=== PATIENT | male | born 1940 | race Caucasian/White ===

== ENCOUNTER 2016-12-01 10:25 | Outpatient (RCR) | payer MEDICARE, OTHER ==
[2016-10-29 15:02] VITALS: BP 148/83
--- NOTE | 2016-10-29 15:37 | Procedure Note ---
Procedure Note Procedure Note Patient is receiving rabies immune globulin and rabies vaccine today. I was called to outpatient surgery center to inject the rabies immunoglobulin around the bite site. Patient was bitten on the lateral right thigh yesterday while leaving work. Around this bite site I injected a total of 7 mL intramuscularly of rabies immunoglobulin at a concentration of 150units per mL. In the left thigh the remaining 6.3 mL was injected totaling 13.3 mL or 2000 international units rabies immune globulin. DEE DAY MEDICAL COORDINATOR PESTICIDE USE Oct 29, 2016 15:37
[2016-10-29 16:05] VITALS: BP 148/83
[2016-11-01 07:50] VITALS: BP 158/74
[2016-11-05 07:54] VITALS: BP 160/87
[2016-11-12 07:46] VITALS: BP 160/83
[~2016-12-01] VITALS: Ht 177.8 cm; Wt 100.2 kg
[~2016-12-01 10:25] MED LIST: ASP81TEC PO; GLIM1TAB PO; METF-380 PO; RABIES IMMUNE GLOBULIN 150 UNIT/ML 10 ML (HYPERRAB) IM ONE; RABIES VACCINE HUMAN DIPL CELL 1 ML/2.5 UNITS SYR INJ ONE; RABIES VACCINE HUMAN DIPL CELL 1 ML/2.5 UNITS SYR ONE
[2016-12-01 10:30] VITALS: BP 147/74
== END 2017-01-27 | disposition home or self-care (01) ==
LOC: SDC 10:25
PROVIDERS: ATTEND Internal Medicine
DX: Z20.3 Contact with and (suspected) exposure to rabies (principal); S71.131A Puncture wound without foreign body, right thigh, initial encounter; W54.0XXA Bitten by dog, initial encounter; Y99.8 Other external cause status; Z23 Encounter for immunization
CPT/HCPCS: 90376; 90675; 96372

== ENCOUNTER 2018-07-28 14:44 | Emergency (ER) | payer MEDICARE, OTHER ==
[~2018-07-28] VITALS: Ht 177.8 cm; Wt 90.7 kg
[~2018-07-28 14:44] MED LIST changes: -RABIES IMMUNE GLOBULIN 150 UNIT/ML 10 ML (HYPERRAB) IM ONE; -RABIES VACCINE HUMAN DIPL CELL 1 ML/2.5 UNITS SYR INJ ONE; -RABIES VACCINE HUMAN DIPL CELL 1 ML/2.5 UNITS SYR ONE
--- OUTSIDE RECORDS SUMMARY | 2018-07-28 14:48 | XMS REPORT | Continuity of Care Document ---
Author Author [facility] Organization [facility] Address Unknown Phone Unavailable Allergies Active Description Code Type Severity Reaction Onset Reported/Identified Relationship to Patient Clinical Status Yes No Known Drug Allergies [id number] Drug Allergy Unknown N/A 07/24/2011 Medications There is no data. Problems Date Dx Coded Attending Type Code Diagnosis Diagnosed By 07/24/2011 Ot 285.9 ANEMIA NOS 07/24/2011 Ot 530.81 ESOPHAGEAL REFLUX 07/24/2011 Ot 562.10 DIVERTICULOSIS COLON (W/O MENT OF HEMORR 12/27/2013 JOHANNA CARTER DO Ot 681.00 CELLULITIS, FINGER NOS 04/03/2015 JOHANNA CARTER DO Ot 716.94 02/01/2016 JOHANNA CARTER DO Ot 486 PNEUMONIA, ORGANISM NOS 02/01/2016 Ot 681.00 CELLULITIS, FINGER NOS 02/01/2016 JOHANNA CARTER DO Ot 716.94 ARTHROPATHY NOS-HAND 02/01/2016 JOHANNA CARTER DO Ot R07.9 CHEST PAIN, UNSPECIFIED 02/04/2016 JOHANNA CARTER DO Ot R07.9 CHEST PAIN, UNSPECIFIED 03/07/2016 JOHANNA CARTER DO Ot R07.9 CHEST PAIN, UNSPECIFIED 04/09/2016 JOHANNA CARTER DO Ot R07.9 CHEST PAIN, UNSPECIFIED 10/29/2016 JOHANNA CARTER DO Ot 486 PNEUMONIA, ORGANISM NOS 10/29/2016 Ot 681.00 CELLULITIS, FINGER NOS 10/29/2016 JOHANNA CARTER DO, Ot 716.94 ARTHROPATHY NOS-HAND 10/29/2016 JOHANNA CARTER DO Ot R07.9 CHEST PAIN, UNSPECIFIED 11/01/2016 JOHANNA CARTER DO Ot S71.131A PUNCTURE WOUND W/O FOREIGN BODY, RIGHT T 11/01/2016 JOHANNA CARTER DO Ot W54.0XXA BITTEN BY DOG, INITIAL ENCOUNTER 11/01/2016 JOHANNA CARTER DO Ot Y99.8 OTHER EXTERNAL CAUSE STATUS 11/01/2016 CARTERJOHANNA MACHADO DO Ot Z20.3 CONTACT WITH AND (SUSPECTED) EXPOSURE TO 11/01/2016 JOHANNA CARTER DO Ot Z23 ENCOUNTER FOR IMMUNIZATION 11/05/2016 JOHANNA CARTER DO Ot S71.131A PUNCTURE WOUND W/O FOREIGN BODY, RIGHT T 11/05/2016 CARTER DOJOHANNA Ot W54.0XXA BITTEN BY DOG, INITIAL ENCOUNTER 11/05/2016 JOHANNA CARTER DO Ot Y99.8 OTHER EXTERNAL CAUSE STATUS 11/05/2016 JOHANNA CARTER DO Ot Z20.3 CONTACT WITH AND (SUSPECTED) EXPOSURE TO 11/05/2016 JOHANNA CARTER DO Ot Z23 ENCOUNTER FOR IMMUNIZATION 11/12/2016 JOHANNA CARTER DO Ot S71.131A PUNCTURE WOUND W/O FOREIGN BODY, RIGHT T 11/12/2016 CARTERJOHANNA MACHADO DO Ot W54.0XXA BITTEN BY DOG, INITIAL ENCOUNTER 11/12/2016 JOHANNA CARTER DO Ot Y99.8 OTHER EXTERNAL CAUSE STATUS 11/12/2016 JOHANNA CARTER DO Ot Z20.3 CONTACT WITH AND (SUSPECTED) EXPOSURE TO 11/12/2016 JOHANNA CARTER DO Ot Z23 ENCOUNTER FOR IMMUNIZATION 12/01/2016 JOHANNA CARTER DO Ot S71.131A PUNCTURE WOUND W/O FOREIGN BODY, RIGHT T 12/01/2016 CARTERJOHANNA MACHADO DO Ot W54.0XXA BITTEN BY DOG, INITIAL ENCOUNTER 12/01/2016 JOHANNA CARTER DO Ot Y99.8 OTHER EXTERNAL CAUSE STATUS 12/01/2016 CARTER DOJOHANNA Ot Z20.3 CONTACT WITH AND (SUSPECTED) EXPOSURE TO 12/01/2016 JOHANNA CARTER DO Ot Z23 ENCOUNTER FOR IMMUNIZATION 01/08/2017 JOHANNA CARTER DO Ot S71.131A PUNCTURE WOUND W/O FOREIGN BODY, RIGHT T 01/08/2017 JOHANNA CARTER DO Ot W54.0XXA BITTEN BY DOG, INITIAL ENCOUNTER 01/08/2017 JOHANNA CARTER DO Ot Y99.8 OTHER EXTERNAL CAUSE STATUS 01/08/2017 JOHANNA CARTER DO Ot Z20.3 CONTACT WITH AND (SUSPECTED) EXPOSURE TO 01/08/2017 EMMA LONG JOHANNA Benz Ot Z23 ENCOUNTER FOR IMMUNIZATION 01/27/2017 JOHANNA CARTER DO Ot S71.131A PUNCTURE WOUND W/O FOREIGN BODY, RIGHT T 01/27/2017 JOHANNA CARTER DO Ot W54.0XXA BITTEN BY DOG, INITIAL ENCOUNTER 01/27/2017 JOHANNA CARTER DO Ot Y99.8 OTHER EXTERNAL CAUSE STATUS 01/27/2017 JOHANNA CARTER DO Ot Z20.3 CONTACT WITH AND (SUSPECTED) EXPOSURE TO 01/27/2017 JOHANNA CARTER DO Ot Z23 ENCOUNTER FOR IMMUNIZATION 02/14/2017 JOHANNA CARTER DO Ot S71.131A PUNCTURE WOUND W/O FOREIGN BODY, RIGHT T 02/14/2017 JOHANNA CARTER DO Ot W54.0XXA BITTEN BY DOG, INITIAL ENCOUNTER 02/14/2017 JOHANNA CARTER DO Ot Y99.8 OTHER EXTERNAL CAUSE STATUS 02/14/2017 JOHANNA CARTER DO Ot Z20.3 CONTACT WITH AND (SUSPECTED) EXPOSURE TO 02/14/2017 EMMA LONG JOHANNA Benz Ot Z23 ENCOUNTER FOR IMMUNIZATION Procedures There is no data. Results There is no data. Encounters ACCT No. Visit Date/Time Discharge Status Pt. Type Provider Facility Loc./Unit Complaint [id number] 01/28/2017 00:12:00 01/28/2017 23:59:59 CLS Preadmit JOHANNA CARTER DO [facility] DOG BITE [id number] 12/01/2016 10:25:00 01/27/2017 00:01:00 DIS Outpatient JOHANNA CARTER DO [facility] DOG BITE [id number] 02/01/2016 06:55:00 02/01/2016 23:59:59 CLS Outpatient JOHANNA CARTER DO [facility] CARD R07.9 CHEST PAIN [id number] 03/12/2015 14:11:00 03/12/2015 23:59:59 CLS Outpatient JOHANNA CARTER DO [facility] RAD ARTHRITIS 2ND DIGIT PIP JOINT [id number] 09/30/2013 12:53:00 12/27/2013 00:01:00 DIS Outpatient JOHANNA CARTER DO [facility] SDC CELLULITIS [id number] 11/14/2013 12:22:00 11/14/2013 23:59:59 CLS Outpatient JOHANNA CARTER DO [facility] RAD PNEUMONIA [id number] 12/28/2013 00:00:00 Document Registration [id number] 07/24/2011 11:14:00 Document Registration
[2018-07-28] MEDS ORDERED: FAMOTIDINE 20MG/2ML IV (PEPCID) IVP ONE (15:15)
[2018-07-28 15:46] LABS: BASOPHILS % (AUTO) 0 % (0-10); EOSINOPHILS # (AUTO) 0.4 10^3/uL (0.0-0.3); EOSINOPHILS % (AUTO) 5 % (0-10); HEMATOCRIT 36 % (40-54); HEMOGLOBIN 11.7 G/DL (13.3-17.7); LYMPHOCYTES # (AUTO) 1.2 X 10^3 (1.0-4.0); LYMPHOCYTES % (AUTO) 18 % (12-44); MEAN CORPUSCULAR HEMOGLOBIN 27 PG (25-34); MEAN CORPUSCULAR HGB CONC 32 G/DL (32-36); MEAN CORPUSCULAR VOLUME 84 FL (80-99); MEAN PLATELET VOLUME 9.8 FL (7.4-10.4); MONOCYTES # (AUTO) 0.4 X 10^3 (0.0-1.0); MONOCYTES % (AUTO) 6 % (0-12); NEUTROPHILS % (AUTO) 71 % (42-75); PLATELET COUNT 272 10^3/uL (130-400); RED BLOOD COUNT 4.29 10^6/uL (4.35-5.85); RED CELL DISTRIBUTION WIDTH 13.7 % (10.0-14.5); WHITE BLOOD COUNT 7.1 10^3/uL (4.3-11.0)
[2018-07-28] MEDS ORDERED: methylPREDNISolone 40 MG/ML (Solu-MEDROL) VIAL IV ONE (16:00)
[2018-07-28 16:05] LABS: CALCIUM 9.4 MG/DL (8.5-10.1); CREATININE SERUM 1.65 MG/DL (0.60-1.30)
[2018-07-28] MEDS ORDERED: CITA10TA7 (16:44)
[2018-07-28] MEDS ORDERED: METF-399 (16:44)
[2018-07-28] MEDS ORDERED: GLIM2TAB (16:44)
[2018-07-28] MEDS ORDERED: LISI10TA2 (16:44)
[2018-07-28] MEDS ORDERED: ATOR20TA66 (16:44)
[2018-07-28] MEDS ORDERED: OSEL75CA15 (16:44)
--- NOTE | 2018-07-28 17:08 | ED General ---
General Chief Complaint: Allergic Reaction Stated Complaint: LIP SWELLING Nursing Triage Note: ARRIVED VIA AMB TO TRIAGE. COMPLAINS OF HIS LIP SWELLING SINCE 829. DENIES ANY OTHER COMPLAINTS. TOOK BENADRYL 50MG AT 1405 Nursing Sepsis Screen: No Definite Risk Source of Information: Patient Exam Limitations: No Limitations Allergies and Home Medications Allergies Coded Allergies: lisinopril (Verified Allergy, Intermediate, 07/28/18) Angioedema Home Medications Aspirin 81 Mg Tabec, 81 MG PO DAILY, (Reported) Glimepiride 1 Mg Tablet, 1 MG PO BID, (Reported) Metformin Hcl 1,000 Mg Tablet, 1 EACH PO BID WITH MEALS, (Reported) Past Cvkhups-Gpgdxk-Msyrjd Hx Patient Social History Alcohol Use: Rarely Uses Recreational Drug Use: No Smoking Status: Never a Smoker Recent Foreign Travel: No Contact w/Someone Who Travel: No Recent Infectious Disease Expo: No Past Medical History Surgeries: Yes (MASS REMOVED FROM BACK) Tonsillectomy Respiratory: No Cardiac: Yes Heart Murmur Neurological: No Genitourinary: No Gastrointestinal: No Musculoskeletal: Yes Endocrine: Yes Diabetes, Non-Insulin dep HEENT: No Cancer: No Psychosocial: No Integumentary: No Physical Exam Vital Signs Vital Signs - First Documented 07/28/18 14:57 Temp 98.3 Pulse 65 Resp 16 B/P (MAP) 144/60 (88) Pulse Ox 97 O2 Delivery Room Air Capillary Refill : Less Than 3 Seconds Height, Weight, BMI Height: 5'10.00" Weight: 200lbs. 0.0oz. 90.559768th; 31.7 BMI Method:Stated Progress/Results/Core Measures Suspected Sepsis Recent Fever Within 48 Hours: No Infection Criteria Present: None New/Unexplained Altered Menta: No Sepsis Screen: No Definite Risk SIRS Temperature:98.3 Pulse: 65 Respiratory Rate: 16 Laboratory Tests 07/28/18 15:35: White Blood Count 7.1 Blood Pressure 144 /60 Mean: 88 Laboratory Tests 07/28/18 15:35: Creatinine 1.65H, Platelet Count 272 Results/Orders Lab Results Laboratory Tests Test 07/28/18 15:35 Range/Units White Blood Count 7.1 4.3-11.0 10^3/uL Red Blood Count 4.29 L 4.35-5.85 10^6/uL Hemoglobin 11.7 L 13.3-17.7 G/DL Hematocrit 36 L 40-54 % Mean Corpuscular Volume 84 80-99 FL Mean Corpuscular Hemoglobin 27 25-34 PG Mean Corpuscular Hemoglobin Concent 32 32-36 G/DL Red Cell Distribution Width 13.7 10.0-14.5 % Platelet Count 272 130-400 10^3/uL Mean Platelet Volume 9.8 7.4-10.4 FL Neutrophils (%) (Auto) 71 42-75 % Lymphocytes (%) (Auto) 18 12-44 % Monocytes (%) (Auto) 6 0-12 % Eosinophils (%) (Auto) 5 0-10 % Basophils (%) (Auto) 0 0-10 % Neutrophils # (Auto) 5.0 1.8-7.8 X 10^3 Lymphocytes # (Auto) 1.2 1.0-4.0 X 10^3 Monocytes # (Auto) 0.4 0.0-1.0 X 10^3 Eosinophils # (Auto) 0.4 H 0.0-0.3 10^3/uL Basophils # (Auto) 0.0 0.0-0.1 10^3/uL Sodium Level 138 135-145 MMOL/L Potassium Level 5.0 3.6-5.0 MMOL/L Chloride Level 105 98-107 MMOL/L Carbon Dioxide Level 20 L 21-32 MMOL/L Anion Gap 13 5-14 MMOL/L Blood Urea Nitrogen 25 H 7-18 MG/DL Creatinine 1.65 H 0.60-1.30 MG/DL Estimat Glomerular Filtration Rate 41 BUN/Creatinine Ratio 15 Glucose Level 172 H 70-105 MG/DL Calcium Level 9.4 8.5-10.1 MG/DL My Orders Orders - MICHELLE GARCÍA MD Saline Lock/Iv-Start (07/28/18 15:04) Basic Metabolic Panel (07/28/18 15:04) Cbc With Automated Diff (07/28/18 15:04) Famotidine Injection (Pepcid Injection) (07/28/18 15:15) Methylprednisolone Sod Succ (Solu-Medrol (07/28/18 16:00) Medications Given in ED Current Medications Medications Dose Ordered Sig/Raymond Route Start Time Stop Time Status Last Admin Dose Admin Famotidine 20 mg ONCE ONCE IVP 07/28/18 15:15 07/28/18 15:16 DC 07/28/18 15:44 20 MG Methylprednisolone Sodium Succinate 40 mg ONCE ONCE IV 07/28/18 16:00 07/28/18 16:01 DC 07/28/18 16:10 40 MG Vital Signs/I&O 07/28/18 14:57 Temp 98.3 Pulse 65 Resp 16 B/P (MAP) 144/60 (88) Pulse Ox 97 O2 Delivery Room Air Capillary Refill : Less Than 3 Seconds Blood Pressure Mean: 88 Departure Impression 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 Decision time for Depature: 17:08 Referrals: JOHANNA RAMOS DO (PCP/Family) Primary Care Physician Patient Instructions: Angioedema Add. Discharge Instructions: Take Pepcid (or generic famotidine) 20 mg twice daily for the next couple of days. Keep Benadryl (or generic diphenhydramine) with you for the next several days and take up to 50 mg every 4 hours as needed if symptoms worsen or persist. You received some steroids in the emergency room which may cause of your blood sugars to rise. Eat a low sugar, low carbohydrate diet and watch your blood sugars closely for the next few days. Do not take lisinopril or any other medication in the angiotensin converting enzyme inhibitor (GAL-I) class of medications in the future. Please list lisinopril as an allergy for any further healthcare encounters. Return to the emergency room promptly or call 911 if you have worsening symptoms that cause swelling of the throat, tongue, or airway. Contact Dr. Ramos's office tomorrow to requests an alternative medication to lisinopril. All discharge instructions reviewed with patient and/or family. Voiced understanding. Copy Copies To 1: JOHANNA RAMOS JOSHUA T MD Jul 28, 2018 17:08
[2018-07-28 17:28] VITALS: BP 149/89
--- NOTE | 2018-07-28 17:28 | NUR ---
@ TIME OF DC, ANTERIOR LIP SWELLING SIGNIFICANTLY DIMINISHED. NO THROAT SWELLING OR DISTRESS NOTED.
== END 2018-07-28 17:28 | disposition home or self-care (01) ==
LOC: EDUNIT# 14:44 → ER 14:45
DX: T73 Effects of other deprivation (principal); T46.4X5A Adverse effect of angiotensin-converting-enzyme inhibitors, initial encounter; E11.9 Type 2 diabetes mellitus without complications; Z88.8 Allergy status to other drugs, medicaments and biological substances; Z79.82 Long term (current) use of aspirin; Z79.4 Long term (current) use of insulin; Z90.89 Acquired absence of other organs
CPT/HCPCS: 36415; 80048; 85025; 96374; 96375

== ENCOUNTER 2018-10-03 12:55 | Observation (INO) | payer MEDICARE, OTHER ==
[~2018-10-03] VITALS: Ht 177.8 cm; Wt 95.3 kg
[~2018-10-03 12:55] MED LIST changes: +ATOR20TA66 PO; +CITA10TA7 PO; +GLIM2TAB; +LISI10TA2 PO; +METF-399; +OSEL75CA15
--- OUTSIDE RECORDS SUMMARY | 2018-10-03 13:00 | XMS REPORT | Clinical Summary ---
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 Disp. Refills Start End Date Status Date metFORMIN (GLUCOPHAGE) Take 1,000 mg by mouth 2 Active 1000 MG (two) times a day with tabletIndications: type 2 meals. diabetes mellitus glimepiride (AMARYL) 2 MG Take 1 mg by mouth 2 Active tablet (two) times a day before breakfast and lunch. atorvastatin (LIPITOR) 20 Take 20 mg by mouth 09/21/19 Active MG tablet nightly. 16 lisinopril Take 10 mg by mouth every 09/21/19 Active (PRINIVIL,ZESTRIL) 10 MG evening. 16 tablet dorzolamide-timolol Instill 1 drop into the 10 mL 0 11/23/20 Active (COSOPT) 22.3-6.8 mg/mL left eye 2 (two) times a 16 ophthalmic solution day. apraclonidine (IOPIDINE) Instill 1 drop into the 5 mL 0 11/23/20 Active 0.5 % ophthalmic solution left eye 4 (four) times a 16 day. 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 11/07/2015 11/24/2015 Family History Relation Name Status Comments Father Mother Social History Tobacco Use Types Packs/Day Years Used Date Never Smoker Smokeless Tobacco: Never Used Alcohol Use Drinks/Week oz/Week Comments No Sex Assigned at Date Recorded Not on file Last Filed Vital Signs Vital Sign Reading Time Taken Blood Pressure 119/50 11/24/2015 11:23 AM CDT Pulse 58 11/24/2015 11:23 AM CDT Temperature 36.4 C (97.6 F) 11/24/2015 11:23 AM CDT Respiratory Rate 18 11/24/2015 11:23 AM CDT Oxygen Saturation 97% 11/24/2015 11:23 AM CDT Inhaled Oxygen - - Concentration Weight 95.7 kg (211 lb) 11/22/2015 2:36 PM CDT Height 177.8 cm (5' 10") 11/22/2015 2:36 PM CDT Body Mass Index 30.28 11/22/2015 2:36 PM CDT Plan of Treatment Not on file Implants Implanted Type Area Social Services Device Expiration Model / Identifier Date Serial / Lot Implant Eye Scleral Buckle Band Non-Tissue Left: Eye SLOVAK 2019 92-09 / Silicone Style 41 92-09 - Implant OPHTHALMIC / [id number] Implanted: Qty: 1 on 11/23/2015 by Keo Rowland MD Lens Bilateral: Eye Results Not on filefrom Last 3 Months
--- OUTSIDE RECORDS SUMMARY | 2018-10-03 13:00 | XMS REPORT | Continuity of Care Document ---
Author Author [facility] Organization [facility] Address Unknown Phone Unavailable Allergies Active Description Code Type Severity Reaction Onset Reported/Identified Relationship to Patient Clinical Status Yes No Known Drug Allergies [id number] Drug Allergy Unknown N/A 07/24/2011 Yes lisinopril [id number] Drug Allergy Moderate N/A 07/28/2018 Medications There is no data. Problems Date [...] 681.00 CELLULITIS, FINGER NOS 10/29/2016 JOHANNA CARTER DO Ot 716.94 ARTHROPATHY NOS-HAND 10/29/2016 JOHANNA CARTER DO Ot R07.9 CHEST PAIN, UNSPECIFIED 11/01/2016 JOHANNA CARTER DO Ot S71.131A PUNCTURE WOUND W/O FOREIGN BODY, RIGHT T 11/01/2016 CARTER DOJOHANNA Tuyet Ot W54.0XXA BITTEN BY DOG, INITIAL ENCOUNTER 11/01/2016 JOHANNA CARTER DO Ot Y99.8 OTHER EXTERNAL CAUSE STATUS 11/01/2016 CARTER DOJOHANNA Ot Z20.3 CONTACT WITH AND (SUSPECTED) EXPOSURE TO 11/01/2016 CARTER DOJOHANNA Ot Z23 ENCOUNTER FOR IMMUNIZATION 11/05/2016 CARTER DOJOHANNA Ot S71.131A PUNCTURE WOUND W/O FOREIGN BODY, RIGHT T 11/05/2016 CARTER DO, JOHANNA Tuyet Ot W54.0XXA BITTEN BY DOG, INITIAL ENCOUNTER 11/05/2016 JOHANNA CARTER DO Ot Y99.8 OTHER EXTERNAL CAUSE STATUS 11/05/2016 CARTER DOJOHANNA Ot Z20.3 CONTACT WITH AND (SUSPECTED) EXPOSURE TO 11/05/2016 CARTER DOJOHANNA Ot Z23 ENCOUNTER FOR IMMUNIZATION 11/12/2016 CARTER DOJOHANNA Ot S71.131A PUNCTURE WOUND W/O FOREIGN BODY, RIGHT T 11/12/2016 CARTER DOJOHANNA Ot W54.0XXA BITTEN BY DOG, INITIAL ENCOUNTER 11/12/2016 CARTER DOJOHANNA Ot Y99.8 OTHER EXTERNAL CAUSE STATUS 11/12/2016 CARTER DOJOHANNA Ot Z20.3 CONTACT WITH AND (SUSPECTED) EXPOSURE TO 11/12/2016 CARTER DOJOHANNA Ot Z23 ENCOUNTER FOR IMMUNIZATION 12/01/2016 CARTER DOJOHANNA Ot S71.131A PUNCTURE WOUND W/O FOREIGN BODY, RIGHT T 12/01/2016 CARTER DOJOHANNA Ot W54.0XXA BITTEN BY DOG, INITIAL ENCOUNTER 12/01/2016 CARTER DOJOHANNA Ot Y99.8 OTHER EXTERNAL CAUSE STATUS 12/01/2016 CARTER DOJOHANNA Ot Z20.3 CONTACT WITH AND (SUSPECTED) EXPOSURE TO 12/01/2016 CARTER DOJOHANNA Ot Z23 ENCOUNTER FOR IMMUNIZATION 01/08/2017 JOHANNA CARTER DO Ot S71.131A PUNCTURE WOUND W/O FOREIGN BODY, RIGHT T 01/08/2017 CARTER DOJOHANNA Ot W54.0XXA BITTEN BY DOG, INITIAL ENCOUNTER 01/08/2017 CARTER DO JOHANNA Tuyet Ot Y99.8 OTHER EXTERNAL CAUSE STATUS 01/08/2017 JOHANNA CARTER DO Tuyet Ot Z20.3 CONTACT WITH AND (SUSPECTED) EXPOSURE TO 01/08/2017 EMMA LONGJOHANNA Ot Z23 ENCOUNTER FOR IMMUNIZATION 01/27/2017 JOHANNA CARTER DO Tuyet Ot S71.131A PUNCTURE WOUND W/O FOREIGN BODY, RIGHT T 01/27/2017 JOHANNA CARTER DO Tuyet Ot W54.0XXA BITTEN BY DOG, INITIAL ENCOUNTER 01/27/2017 EMMA LONG JOHANNA Tuyet Ot Y99.8 OTHER EXTERNAL CAUSE STATUS 01/27/2017 JOHANNA CARTER DO Ot Z20.3 CONTACT WITH AND (SUSPECTED) EXPOSURE TO 01/27/2017 EMMA LONG JOHANNA Tuyet Ot Z23 ENCOUNTER FOR IMMUNIZATION 02/14/2017 EMMA LONG JOHANNA Tuyet Ot S71.131A PUNCTURE WOUND W/O FOREIGN BODY, RIGHT T 02/14/2017 EMMA LONG JOHANNA Tuyet Ot W54.0XXA BITTEN BY DOG, INITIAL ENCOUNTER 02/14/2017 EMMA LONG JOHANNA Tuyet Ot Y99.8 OTHER EXTERNAL CAUSE STATUS 02/14/2017 EMMA LONG JOHANNA Tuyet Ot Z20.3 CONTACT WITH AND (SUSPECTED) EXPOSURE TO 02/14/2017 EMMA LONGJOHANNA Ot Z23 ENCOUNTER FOR IMMUNIZATION 07/28/2018 Ot 681.00 CELLULITIS, FINGER NOS 07/28/2018 EMMA LONG JOHANNA Tuyet Ot S71.131A PUNCTURE WOUND W/O FOREIGN BODY, RIGHT T 07/28/2018 EMMA LONG JOHANNA Tuyet Ot W54.0XXA BITTEN BY DOG, INITIAL ENCOUNTER 07/28/2018 EMMA LONGJOHANNA Ot Y99.8 OTHER EXTERNAL CAUSE STATUS 07/28/2018 EMMA LONGJOHANNA Ot Z20.3 CONTACT WITH AND (SUSPECTED) EXPOSURE TO 07/28/2018 CARTER DOJOHANNA Ot Z23 ENCOUNTER FOR IMMUNIZATION 07/28/2018 MICHELLE GARCÍA MD, Ot E11.9 TYPE 2 DIABETES MELLITUS WITHOUT COMPLIC 07/28/2018 MICHELLE GARCÍA MD Ot K13.0 DISEASES OF LIPS 07/28/2018 MICHELLE GARCÍA MD, Ot T46.4X5A ADVERSE EFFECT OF [id number] 07/28/2018 MICHELLE GARCÍA MD, Ot T73.8XXA OTHER EFFECTS OF DEPRIVATION, INITIAL EN 07/28/2018 MICHELLE GARCÍA MD, Ot Z79.4 [employer] (CURRENT) USE OF INSULIN 07/28/2018 MICHELLE GARCÍA MD, Ot Z79.82 [employer] CR[employer] (CURRENT) USE OF ASPIRIN 07/28/2018 MICHELLE GARCÍA MD, Ot Z88.8 ALLERGY STATUS TO [facility] DRUG/MEDS/BIOL SUB 07/28/2018 MICHELLE GARCÍA MD, Ot Z90.89 ACQUIRED ABSENCE OF OTHER ORGANS 07/28/2018 JOHANNA CARTER DO, Ot 486 PNEUMONIA, ORGANISM NOS 07/28/2018 Ot 681.00 CELLULITIS, FINGER NOS 07/28/2018 JOHANNA CARTER DO Ot 716.94 ARTHROPATHY NOS-HAND 07/28/2018 JOHANNA CARTER DO, Ot R07.9 CHEST PAIN, UNSPECIFIED 07/28/2018 JOHANNA CARTER DO, Ot S71.131A PUNCTURE WOUND W/O FOREIGN BODY, RIGHT T 07/28/2018 JOHANNA CARTER DO, Ot W54.0XXA BITTEN BY DOG, INITIAL ENCOUNTER 07/28/2018 JOHANNA CARTER DO, Ot Y99.8 OTHER EXTERNAL CAUSE STATUS 07/28/2018 JOHANNA CARTER DO, Ot Z20.3 CONTACT WITH AND (SUSPECTED) EXPOSURE TO 07/28/2018 JOHANNA CARTER DO, Ot Z23 ENCOUNTER FOR IMMUNIZATION 07/30/2018 MICHELLE GARCÍA MD, Ot E11.9 TYPE 2 DIABETES MELLITUS WITHOUT COMPLIC 07/30/2018 MICHELLE GARCÍA MD, Ot K13.0 DISEASES OF LIPS 07/30/2018 MICHELLE GARCÍA MD, Ot T46.4X5A ADVERSE EFFECT OF [id number] 07/30/2018 MICHELLE GARCÍA MD, Ot T73.8XXA OTHER EFFECTS OF DEPRIVATION, INITIAL EN 07/30/2018 MICHELLE GARCÍA MD, Ot Z79.4 [facility] (CURRENT) USE OF INSULIN 07/30/2018 MICHELLE GARCÍA MD, Ot Z79.82 [facility] (CURRENT) USE OF ASPIRIN 07/30/2018 RAQUEL HERRERA, MICHELLE Fox Ot Z88.8 ALLERGY STATUS TO [facility] DRUG/MEDS/BIOL SUB 07/30/2018 RAQUEL HERRERA, MICHELLE Fox Ot Z90.89 ACQUIRED ABSENCE OF OTHER ORGANS Procedures There is no data. Results Test Result Range Complete blood count (CBC) with automated white blood cell (WBC) differential - 07/28/18 15:35 Blood leukocytes automated count (number/volume) 7.1 10*3/uL 4.3-11.0 Blood erythrocytes automated count (number/volume) 4.29 10*6/uL 4.35-5.85 Venous blood hemoglobin measurement (mass/volume) 11.7 g/dL 13.3-17.7 Blood hematocrit (volume fraction) 36 % 40-54 Automated erythrocyte mean corpuscular volume 84 [foz_us] 80-99 Automated erythrocyte mean corpuscular hemoglobin (mass per erythrocyte) 27 pg 25-34 Automated erythrocyte mean corpuscular hemoglobin concentration measurement ( mass/volume) 32 g/dL 32-36 Automated erythrocyte distribution width ratio 13.7 % 10.0-14.5 Automated blood platelet count (count/volume) 272 10*3/uL 130-400 Automated blood platelet mean volume measurement 9.8 [foz_us] 7.4-10.4 Automated blood neutrophils/100 leukocytes 71 % 42-75 Automated blood lymphocytes/100 leukocytes 18 % 12-44 Blood monocytes/100 leukocytes 6 % 0-12 Automated blood eosinophils/100 leukocytes 5 % 0-10 Automated blood basophils/100 leukocytes 0 % 0-10 Blood neutrophils automated count (number/volume) 5.0 10*3 1.8-7.8 Blood lymphocytes automated count (number/volume) 1.2 10*3 1.0-4.0 Blood monocytes automated count (number/volume) 0.4 10*3 0.0-1.0 Automated eosinophil count 0.4 10*3/uL 0.0-0.3 Automated blood basophil count (count/volume) 0.0 10*3/uL 0.0-0.1 Whole blood basic metabolic panel - 07/28/18 15:35 Serum or plasma sodium measurement (moles/volume) 138 mmol/L 135-145 Serum or plasma potassium measurement (moles/volume) 5.0 mmol/L 3.6-5.0 Serum or plasma chloride measurement (moles/volume) 105 mmol/L 98-107 Carbon dioxide 20 mmol/L 21-32 Serum or plasma anion gap determination (moles/volume) 13 mmol/L 5-14 Serum or plasma urea nitrogen measurement (mass/volume) 25 mg/dL 7-18 Serum or plasma creatinine measurement (mass/volume) 1.65 mg/dL 0.60-1.30 Serum or plasma urea nitrogen/creatinine mass ratio 15 NRG Serum or plasma creatinine measurement with calculation of estimated glomerular filtration rate 41 NRG Serum or plasma glucose measurement (mass/volume) 172 mg/dL 70-105 Serum or plasma calcium measurement (mass/volume) 9.4 mg/dL 8.5-10.1 Encounters ACCT No. Visit Date/Time Discharge Status Pt. Type Provider Facility Loc./Unit Complaint [id number] 07/28/2018 14:45:00 07/28/2018 17:28:00 DIS Emergency MICHELLE GARCÍA MD [facility] ER LIP SWELLING [id number] 01/28/2017 00:12:00 01/28/2017 23:59:59 CLS Preadmit JOHANNA CARTER DO [facility] DOG BITE [id number] 12/01/2016 10:25:00 01/27/2017 00:01:00 DIS Outpatient JOHANNA CARTER DO [facility] DOG BITE [id number] 02/01/2016 06:55:00 02/01/2016 23:59:59 CLS Outpatient JOHANNA CARTER DO [facility] CARD R07.9 CHEST PAIN [id number] 03/12/2015 14:11:00 03/12/2015 23:59:59 CLS Outpatient JOHANNA CARTER DO [facility] RAD ARTHRITIS 2ND DIGIT PIP JOINT [id number] 09/30/2013 12:53:00 12/27/2013 00:01:00 DIS Outpatient JOHANNA CARTER DO [facility] CELLULITIS [id number] 11/14/2013 12:22:00 11/14/2013 23:59:59 CLS Outpatient JOHANNA CARTER DO [facility] RAD PNEUMONIA [id number] 12/28/2013 00:00:00 Document Registration [id number] 07/24/2011 11:14:00 Document Registration
[2018-10-03] MEDS ORDERED: NS IV 1000 ML 1,000 ML IV ONE (13:41)
[2018-10-03 13:51] LABS: BASOPHILS % (AUTO) 0 % (0-10); EOSINOPHILS % (AUTO) 0 % (0-10); HEMATOCRIT 41 % (40-54); HEMOGLOBIN 13.2 G/DL (13.3-17.7); LYMPHOCYTES # (AUTO) 0.9 X 10^3 (1.0-4.0); LYMPHOCYTES % (AUTO) 11 % (12-44); MEAN CORPUSCULAR HEMOGLOBIN 28 PG (25-34); MEAN CORPUSCULAR HGB CONC 32 G/DL (32-36); MEAN CORPUSCULAR VOLUME 85 FL (80-99); MEAN PLATELET VOLUME 10.6 FL (7.4-10.4); MONOCYTES # (AUTO) 0.9 X 10^3 (0.0-1.0); MONOCYTES % (AUTO) 10 % (0-12); NEUTROPHILS # (AUTO) 6.5 X 10^3 (1.8-7.8); NEUTROPHILS % (AUTO) 78 % (42-75); PLATELET COUNT 188 10^3/uL (130-400); RED CELL DISTRIBUTION WIDTH 14.3 % (10.0-14.5); WHITE BLOOD COUNT 8.3 10^3/uL (4.3-11.0)
[2018-10-03 14:03] LABS: ALBUMIN 4.4 GM/DL (3.2-4.5); BILIRUBIN,TOTAL 1.4 MG/DL (0.1-1.0); CALCIUM 9.2 MG/DL (8.5-10.1); CREATININE SERUM 1.83 MG/DL (0.60-1.30); POTASSIUM 4.4 MMOL/L (3.6-5.0); TOTAL PROTEIN 8.1 GM/DL (6.4-8.2)
--- NOTE | 2018-10-03 14:44 | Diagnostic Imaging Report ---
PROCEDURE: CT head and CT cervical spine without contrast. TECHNIQUE: Multiple contiguous axial images were obtained through the brain and cervical spine without the use of intravenous contrast. Sagittal and coronal reformations through the cervical spine were then performed. INDICATION: Fell, head and neck pain. COMPARISON: There are no prior studies available for comparison. CT OF THE HEAD: There is no mass, shift of the midline, or hemorrhage to suggest an acute intracranial abnormality. The normal tentorial blush is noted. The ventricles are not abnormally dilated. There are vague areas of low density in the periventricular white matter bilaterally. These findings are nonspecific but may be secondary to encephalomalacia from microvascular ischemia. Cortical atrophy is also seen. The degree of atrophy is consistent with the patient's age. The bone windows show no sign of a fracture or of a destructive lesion. The orbits are symmetrical and within normal limits. There is mucosal thickening and fluid in the right maxillary antrum consistent with sinusitis. The sinuses, where visualized, are otherwise generally clear. IMPRESSION: 1. There is no evidence for an acute intracranial abnormality. 2. If the patient is anticoagulated, and if his symptoms persist, then a short-term (24-hour) follow-up CT head exam would be recommended. 3. There is right maxillary sinusitis. CT CERVICAL SPINE: The reconstructed parasagittal images do show slight anterior translation of C5 with respect to C6. There is also narrowing of the disc space at this level. There does not appear to be any high-grade central stenosis at C5-6, however. The remainder of the cervical spine is unremarkable for a high-grade central stenosis. There is no fracture or acute bony abnormality appreciated. There is some bony irregularity along the posterior aspect of the facet joint on the left at C5-6 (image 52/80). I suspect this is more likely due to chronic bony disease than to an acute injury. Clinical followup is recommended, however. There is no sign of retropharyngeal edema. The thyroid gland is unremarkable. The lung apices are clear. IMPRESSION: 1. There is no evidence for an acute bony abnormality. The irregular appearance of the posterior aspect of the facet joint on the left at C5-6 is more likely due to degenerative disease than to an acute abnormality. Even so, clinical followup is recommended. 2. There is degenerative disc and bony disease at C5-6, but there is no evidence for a high-grade central stenosis at this level. 3. These results were discussed with Dr. Tse. Dictated by: Dictated on workstation # [id number]
--- NOTE | 2018-10-03 14:46 | Diagnostic Imaging Report ---
PROCEDURE: CT chest, abdomen, and pelvis without contrast. TECHNIQUE: Multiple contiguous axial images were obtained through the chest, abdomen, and pelvis without the use of intravenous contrast. INDICATION: Cough. Chest pain. Fall. COMPARISON: None. FINDINGS: Chest: Minimal linear atelectasis or scarring in the lung bases. Calcified right hilar lymph nodes. No dense consolidation in the lungs. No endobronchial lesions. No pleural effusion or pneumothorax. Normal caliber thoracic aorta and main pulmonary arteries. Normal heart size. No pericardial effusion. No mediastinal, hilar or axillary lymphadenopathy. Bridging osteophytes throughout much of the thoracic spine. There is acute appearing fracture through the anterior vertebral body of T7 extending through the inferior endplate. No other fractures are identified. No substantial height loss in the thoracolumbar spine. Abdomen and pelvis: The liver, gallbladder, pancreas, spleen, adrenals, kidneys, collecting systems and bladder are negative on this noncontrast exam. Penile implants are partially visualized. No lymphadenopathy. Mild atherosclerotic calcifications including a normal caliber abdominal aorta. No free intraperitoneal air or fluid. No lymphadenopathy. Advanced colonic diverticulosis without evidence of active diverticulitis. No acute osseous findings. Moderate spondylotic changes in the lumbar spine. IMPRESSION: 1. Nondisplaced linear fracture through the anterior vertebral body of T7 exiting the inferior endplate. No height mass. No other fractures. 2. No acute CT findings in the lungs, abdomen or pelvis. 3. Advanced colonic diverticulosis without evidence of active diverticulitis. Dictated by: Dictated on workstation # [id number]
[2018-10-03 16:03] LABS: BILIRUBIN,URINE NEGATIVE (NEGATIVE); CLARITY,URINE SLIGHTLY CLOUDY; COLOR,URINE YELLOW; GLUCOSE, URINE (UA) NEGATIVE (NEGATIVE); KETONES,URINE 1+ (NEGATIVE); LEUKOCYTE ESTERASE ,URINE NEGATIVE (NEGATIVE); NITRITE,URINE NEGATIVE (NEGATIVE); PH,URINE 5 (5-9); PROTEIN,URINE 3+ (NEGATIVE); UROBILINOGEN,URINE NORMAL (NORMAL)
[2018-10-03 16:13] LABS: BACTERIA,URINE NEGATIVE /HPF; RBC,URINE TNTC /HPF
[2018-10-03] MEDS ORDERED: fentaNYL INJECTION 100 MCG/2 ML AMP IVP ONE ×2 (17:30→19:15)
[2018-10-03] MEDS ORDERED: OSELTAMIVIR 30 MG (TAMIFLU) CAPSULE PO ONE (17:30)
[2018-10-03] MEDS ORDERED: HYDROcodone/APAP 5 MG/325 MG (LORTAB) TAB ONE (19:05)
[2018-10-03] MEDS ORDERED: NS IV 1000 ML 1,000 ML ONE (19:11)
[2018-10-03] MEDS ORDERED: HYDROcodone/APAP 5 MG/325 MG (LORTAB) TAB PO ONE (19:15)
--- NOTE | 2018-10-03 19:23 | ED General ---
General Chief Complaint: Trauma-Non Activation Stated Complaint: FALL/COUGH/DIZZINESS Nursing Triage Note: see triage note Nursing Sepsis Screen: No Definite Risk Source of Information: Patient Exam Limitations: No Limitations History of Present Illness Date Seen by Provider: Oct 03, 2018 Time Seen by Provider: 13:30 Initial Comments This 77-year-old gentleman ambulates to the emergency room accompanied by his after having a fall in his home. The fall occurred at about 11:30. He fell backward in the bathroom striking his head and back. There was no loss of consciousness but the patient did not remember the fall. In fact, the patient did not remember being ill for the past 2 days. He has been ill with a fever and cough. He complains of some minor pain at the back of his head and some upper back pain. He also has pain in the right lower lateral chest wall that is tender to palpation and hurts with movement or cough. He is alert and oriented at this time. Location Injury Occurred: pt's home Allergies and Home Medications Allergies Coded Allergies: lisinopril (Verified Allergy, Intermediate, 07/28/18) Angioedema Home Medications Aspirin 81 Mg Tabec, 81 MG PO DAILY, (Reported) Atorvastatin Calcium 20 Mg Tablet, 20 MG PO HS, (Reported) Citalopram Hydrobromide 10 Mg Tablet, 10 MG PO DAILY, (Reported) Lisinopril 10 Mg Tablet, 10 MG PO HS, (Reported) Metformin Hcl 1,000 Mg Tablet, 1 EACH PO BID WITH MEALS, (Reported) Patient Home Medication List Home Medication List Reviewed: Yes Review of Systems Review of Systems Constitutional: see HPI EENTM: see HPI Respiratory: see HPI Cardiovascular: no symptoms reported Gastrointestinal: no symptoms reported Genitourinary: no symptoms reported Musculoskeletal: see HPI Skin: no symptoms reported Psychiatric/Neurological: See HPI Hematologic/Lymphatic: No Symptoms Reported Immunological/Allergic: no symptoms reported Past Zdobagq-Fucerl-Ykrnez Hx Past Med/Social Hx: Reviewed Nursing Past Med/Soc Hx Patient Social History Alcohol Use: Rarely Uses Recreational Drug Use: No Smoking Status: Never a Smoker Recent Foreign Travel: No Contact w/Someone Who Travel: No Recent Infectious Disease Expo: No Recent Hopitalizations: No Past Medical History Surgeries: Yes (MASS REMOVED FROM BACK, hiatal hernia repair) Tonsillectomy Respiratory: No Cardiac: Yes Heart Murmur, Hypertension Neurological: No Genitourinary: No Gastrointestinal: No Musculoskeletal: Yes Endocrine: Yes Diabetes, Non-Insulin dep HEENT: No Cancer: No Psychosocial: Yes Anxiety Integumentary: No Physical Exam Vital Signs Vital Signs - First Documented 10/03/18 12:55 Temp 98.2 Pulse 76 Resp 14 B/P (MAP) 151/78 (102) Pulse Ox 93 O2 Delivery Room Air Capillary Refill : Less Than 3 Seconds Height, Weight, BMI Height: 5'10.00" Weight: 200lbs. 0.0oz. 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 Norm as Tested Skin: Normal Color, Warm/Dry Progress/Results/Core Measures Suspected Sepsis Recent Fever Within 48 Hours: No Infection Criteria Present: Suspected New Infection New/Unexplained Altered Menta: No Sepsis Screen: No Definite Risk SIRS Temperature:98.2 Pulse: 76 Respiratory Rate: 14 Laboratory Tests 10/03/18 13:07: White Blood Count 8.3 Blood Pressure 151 /78 Mean: 102 Laboratory Tests 10/03/18 13:07: Creatinine 1.83H, Platelet Count 188, Total Bilirubin 1.4H Results/Orders Lab Results Laboratory Tests Test 10/03/18 13:04 10/03/18 13:07 10/03/18 15:55 Range/Units Glucometer 165 H 70-110 MG/DL White Blood Count 8.3 4.3-11.0 10^3/uL Red Blood Count 4.80 4.35-5.85 10^6/uL Hemoglobin 13.2 L 13.3-17.7 G/DL Hematocrit 41 40-54 % Mean Corpuscular Volume 85 80-99 FL Mean Corpuscular Hemoglobin 28 25-34 PG Mean Corpuscular Hemoglobin Concent 32 32-36 G/DL Red Cell Distribution Width 14.3 10.0-14.5 % Platelet Count 188 130-400 10^3/uL Mean Platelet Volume 10.6 H 7.4-10.4 FL Neutrophils (%) (Auto) 78 H 42-75 % Lymphocytes (%) (Auto) 11 L 12-44 % Monocytes (%) (Auto) 10 0-12 % Eosinophils (%) (Auto) 0 0-10 % Basophils (%) (Auto) 0 0-10 % Neutrophils # (Auto) 6.5 1.8-7.8 X 10^3 Lymphocytes # (Auto) 0.9 L 1.0-4.0 X 10^3 Monocytes # (Auto) 0.9 0.0-1.0 X 10^3 Eosinophils # (Auto) 0.0 0.0-0.3 10^3/uL Basophils # (Auto) 0.0 0.0-0.1 10^3/uL Sodium Level 133 L 135-145 MMOL/L Potassium Level 4.4 3.6-5.0 MMOL/L Chloride Level 98 98-107 MMOL/L Carbon Dioxide Level 21 21-32 MMOL/L Anion Gap 14 5-14 MMOL/L Blood Urea Nitrogen 24 H 7-18 MG/DL Creatinine 1.83 H 0.60-1.30 MG/DL Estimat Glomerular Filtration Rate 36 BUN/Creatinine Ratio 13 Glucose Level 166 H 70-105 MG/DL Calcium Level 9.2 8.5-10.1 MG/DL Corrected Calcium 8.9 8.5-10.1 MG/DL Total Bilirubin 1.4 H 0.1-1.0 MG/DL Aspartate Amino Transf (AST/SGOT) 20 5-34 U/L Alanine Aminotransferase (ALT/SGPT) 15 0-55 U/L Alkaline Phosphatase 105 40-136 U/L Total Protein 8.1 6.4-8.2 GM/DL Albumin 4.4 3.2-4.5 GM/DL Urine Color YELLOW Urine Clarity SLIGHTLY CLOUDY Urine pH 5 5-9 Urine Specific [place] 1.020 1.016-1.022 Urine Protein 3+ H NEGATIVE Urine Glucose (UA) NEGATIVE NEGATIVE Urine Ketones 1+ H NEGATIVE Urine Nitrite NEGATIVE NEGATIVE Urine Bilirubin NEGATIVE NEGATIVE Urine Urobilinogen NORMAL NORMAL MG/DL Urine Leukocyte Esterase NEGATIVE NEGATIVE Urine RBC (Auto) 5+ H NEGATIVE Urine RBC TNTC H /HPF Urine WBC NONE /HPF Urine Squamous Epithelial Cells NONE /HPF Urine Crystals NONE /LPF Urine Bacteria NEGATIVE /HPF Urine Casts NONE /LPF Urine Mucus NEGATIVE /LPF Urine Culture Indicated NO Micro Results Microbiology 10/03/18 Influenza Types A,B Antigen (ROSY) - Final, Complete My Orders Orders - MICHELLE TSE MD Influenza A And B Antigens (10/03/18 13:30) Ct Head/Cervical Spine Wo (10/03/18 13:41) Cbc With Automated Diff (10/03/18 13:41) Comprehensive Metabolic Panel (10/03/18 13:41) Saline Lock/Iv-Start (10/03/18 13:41) Ns Iv 1000 Ml (Sodium Chloride 0.9%) (10/03/18 13:41) Ct Chest/Abdomen/Pelvis Wo (10/03/18 13:41) Ua Culture If Indicated (10/03/18 13:41) Fentanyl Injection (Sublimaze Injection (10/03/18 17:30) Oseltamivir 30 Mg Capsule (Tamiflu 30 Mg (10/03/18 17:30) Cho 60g/M 3snack (16-2000 Reji) (10/04/18 Breakfast) Fentanyl Injection (Sublimaze Injection (10/03/18 19:15) Hydrocodone/Apap 5/325 Tablet (Lortab 5 (10/03/18 19:15) Hydrocodone/Apap 5/325 Tablet (Lortab 5 (10/03/18 19:05) Ns Iv 1000 Ml (Sodium Chloride 0.9%) (10/03/18 19:11) Ns Iv 1000 Ml (Sodium Chloride 0.9%) (10/03/18 19:30) Acetaminophen Tablet (Tylenol Tablet) (10/03/18 19:45) Medications Given in ED Current Medications Medications Dose Ordered Sig/Raymond Route Start Time Stop Time Status Last Admin Dose Admin Acetaminophen/ Hydrocodone Bitart 1 tab ONCE ONCE PO 10/03/18 19:15 10/03/18 19:16 DC 10/03/18 19:05 1 TAB Fentanyl Citrate 50 mcg ONCE ONCE IVP 10/03/18 17:30 10/03/18 17:31 DC 10/03/18 17:34 50 MCG Fentanyl Citrate 75 mcg ONCE ONCE IVP 10/03/18 19:15 10/03/18 19:16 DC 10/03/18 19:05 75 MCG Oseltamivir Phosphate 30 mg ONCE ONCE PO 10/03/18 17:30 10/03/18 17:31 DC 10/03/18 17:32 30 MG Sodium Chloride 1,000 ml @ 0 mls/hr Q0M ONCE IV 10/03/18 13:41 10/03/18 13:46 DC 10/03/18 13:50 0 MLS/HR Vital Signs/I&O 10/03/18 10/03/18 10/03/18 12:55 19:05 19:41 Temp 98.2 100.6 100.6 Pulse 76 Resp 14 B/P (MAP) 151/78 (102) Pulse Ox 93 O2 Delivery Room Air Capillary Refill : Less Than 3 Seconds Blood Pressure Mean: 102 Progress Note : Progress Note CT of the head through pelvis was obtained. Patient was found to have a transverse fracture through the T7 body. Dr. Muñoz was consulted about this fracture. He graciously provided input and recommended assessment by a neurosurgeon or spine surgeon as he is not presently available to see the patient and is not [facility]. I did contact Dr. Duffy, neurosurgeon [facility] at [facility] in [place]. She recommended a TLSO brace and follow-up as an outpatient. She did not feel transfer was necessary. [facility] does not have an "off the shelf" TLSO product. Options were to admit the patient for observation and symptom management while awaiting fitting by an orthotics Company versus transfer to another facility that might have been "off the shelf " product. Patient elects to be admitted here. Case was discussed with Dr. Singleton who agrees to admission. Case was also discussed with Dr. Baer S trauma surgeon. He excepts consult. Also discussed was the hematuria found in the blood. This may represent a renal contusion. Patient had lateral chest wall tenderness on the right but no injury was found on CT scan. He likely has a chest wall contusion. Pain was treated with fentanyl and hydrocodone. IV fluids were initiated. Tamiflu was started in the ER for treatment of influenza. Diagnostic Imaging Diagonstic Imaging: CT Plain Films/CT/US/NM/MRI: c-spine, head Comments CT head and cervical spine viewed by me and report reviewed. See report below: NAME: MILY SMITH [facility] REC#: [id number] PT STATUS: REG ER : 1940 PHYSICIAN: MICHELLE TSE MD ADMIT DATE: 10/03/18/ER Draft Date of Exam:10/03/18 CT HEAD/CERVICAL SPINE WO PROCEDURE: CT head and CT cervical spine without contrast. TECHNIQUE: Multiple contiguous axial images were obtained through the brain and cervical spine without the use of intravenous contrast. Sagittal and coronal reformations through the cervical spine were then performed. INDICATION: Fell, head and neck pain. COMPARISON: There are no prior studies available for comparison. CT OF THE HEAD: There is no mass, shift of the midline, or hemorrhage to suggest an acute intracranial abnormality. The normal tentorial blush is noted. The ventricles are not abnormally dilated. There are vague areas of low density in the periventricular white matter bilaterally. These findings are nonspecific but may be secondary to encephalomalacia from microvascular ischemia. Cortical atrophy is also seen. The degree of atrophy is consistent with the patient's age. The bone windows show no sign of a fracture or of a destructive lesion. The orbits are symmetrical and within normal limits. There is mucosal thickening and fluid in the right maxillary antrum consistent with sinusitis. The sinuses, where visualized, are otherwise generally clear. IMPRESSION: 1. There is no evidence for an acute intracranial abnormality. 2. If the patient is anticoagulated, and if his symptoms persist, then a short-term (24-hour) follow-up CT head exam would be recommended. 3. There is right maxillary sinusitis. CT CERVICAL SPINE: The reconstructed parasagittal images do show slight anterior translation of C5 with respect to C6. There is also narrowing of the disc space at this level. There does not appear to be any high-grade central stenosis at C5-6, however. The remainder of the cervical spine is unremarkable for a high-grade central stenosis. There is no fracture or acute bony abnormality appreciated. There is some bony irregularity along the posterior aspect of the facet joint on the left at C5-6 (image 52/80). I suspect this is more likely due to chronic bony disease than to an acute injury. Clinical followup is recommended, however. There is no sign of retropharyngeal edema. The thyroid gland is unremarkable. The lung apices are clear. IMPRESSION: 1. There is no evidence for an acute bony abnormality. The irregular appearance of the posterior aspect of the facet joint on the left at C5-6 is more likely due to degenerative disease than to an acute abnormality. Even so, clinical followup is recommended. 2. There is degenerative disc and bony disease at C5-6, but there is no evidence for a high-grade central stenosis at this level. 3. These results were discussed with Dr. Tse. Dictated on workstation # [id number] Dict: 10/03/18 1432 Trans: 10/03/18 1453 [id number] Interpreted by: ROD THOMASON MD Diagonstic Imaging: CT Plain Films/CT/US/NM/MRI: chest, abdomen, pelvis Comments CT chest, abdomen and pelvis viewed by me and report reviewed. See report below : NAME: MILY SMITH [facility] REC#: [id number] PT STATUS: REG ER : 1940 PHYSICIAN: MICHELLE TSE MD ADMIT DATE: 10/03/18/ER Signed Date of Exam: 10/03/18 CT CHEST/ABDOMEN/PELVIS WO PROCEDURE: CT chest, abdomen, and pelvis without contrast. TECHNIQUE: Multiple contiguous axial images were obtained through the chest, abdomen, and pelvis without the use of intravenous contrast. INDICATION: Cough. Chest pain. Fall. COMPARISON: None. FINDINGS: Chest: Minimal linear atelectasis or scarring in the lung bases. Calcified right hilar lymph nodes. No dense consolidation in the lungs. No endobronchial lesions. No pleural effusion or pneumothorax. Normal caliber thoracic aorta and main pulmonary arteries. Normal heart size. No pericardial effusion. No mediastinal, hilar or axillary lymphadenopathy. Bridging osteophytes throughout much of the thoracic spine. There is acute appearing fracture through the anterior vertebral body of T7 extending through the inferior endplate. No other fractures are identified. No substantial height loss in the thoracolumbar spine. Abdomen and pelvis: The liver, gallbladder, pancreas, spleen, adrenals, kidneys, collecting systems and bladder are negative on this noncontrast exam. Penile implants are partially visualized. No lymphadenopathy. Mild atherosclerotic calcifications including a normal caliber abdominal aorta. No free intraperitoneal air or fluid. No lymphadenopathy. Advanced colonic diverticulosis without evidence of active diverticulitis. No acute osseous findings. Moderate spondylotic changes in the lumbar spine. IMPRESSION: 1. Nondisplaced linear fracture through the anterior vertebral body of T7 exiting the inferior endplate. No height mass. No other fractures. 2. No acute CT findings in the lungs, abdomen or pelvis. 3. Advanced colonic diverticulosis without evidence of active diverticulitis. Dictated by: Dictated on workstation # [id number] Dict: 10/03/18 1434 Trans: 10/03/18 1701 Interpreted by: MICHELLE HARPER MD Electronically signed by: MICHELLE HARPER MD 10/03/18 1701 Departure Communication (Admissions) Time/Spoke to Admitting Phy: 18:09 Dr. Singleton Time/Spoke to Consulting Phy: 18:15 Dr. Baer Impression Primary Impression: T7 vertebral fracture Qualified Codes: S22.069A - Unspecified fracture of T7-t8 vertebra, initial encounter for closed fracture Additional Impressions: Influenza A Chronic kidney disease Qualified Codes: N18.9 - Chronic kidney disease, unspecified Hematuria Qualified Codes: R31.9 - Hematuria, unspecified Chest wall contusion Qualified Codes: S20.211A - Contusion of right front wall of thorax, initial encounter Fall on same level Qualified Codes: W18.30XA - Fall on same level, unspecified, initial encounter Disposition: ADMITTED INPATIENT Condition: Improved Admissions Decision to Admit Reason: Admit from ER (Trauma) Decision to Admit/Date: Oct 03, 2018 Time/Decision to Admit Time: 18:09 Departure-Patient Inst. Referrals: JOHANNA CARTER DO (PCP/Family) Primary Care Physician Work/School Note: Work Release Form Date Seen in the Emergency Department: Oct 03, 2018 Restrictions: Need Release from Doctor Other Restrictions Listed Below: No work until release. T7 spine fracture and influenza. Copy Copies To 1: JOHANNA CARTER JOSHUA T MD Oct 03, 2018 19:23
[2018-10-03] MEDS ORDERED: NS IV 1000 ML 1,000 ML IV SCH (19:30)
[2018-10-03] MEDS ORDERED: ACETAMINOPHEN 500 MG TAB (TYLENOL) PO ONE (19:45)
--- OUTSIDE RECORDS SUMMARY | 2018-10-03 19:48 | XMS REPORT | Continuity of Care Document ---
Author Author [facility] Organization [facility] Address Unknown Phone Unavailable Allergies Active Description Code Type Severity Reaction Onset Reported/Identified Relationship to Patient Clinical Status Yes No Known Drug Allergies [id number] Drug Allergy Unknown N/A 07/24/2011 Yes lisinopril [id number] Drug Allergy Moderate N/A 07/28/2018 Medications There [...] Ot Y99.8 OTHER EXTERNAL CAUSE STATUS 11/01/2016 CRATER DOJOHANNA Ot Z20.3 CONTACT WITH AND (SUSPECTED) [...] GARCÍA MD, Ot T46.4X5A ADVERSE EFFECT OF [id number] 07/28/2018 MICHELLE GARCÍA MD, Ot T73.8XXA OTHER EFFECTS OF DEPRIVATION, INITIAL EN 07/28/2018 MICHELLE GARCÍA MD, Ot Z79.4 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 07/28/2018 MICHELLE GARCÍA MD, Ot Z79.82 CORPORATE AUDITOR (CURRENT) USE OF ASPIRIN 07/28/2018 MICHELLE GARCÍA MD, Ot Z88.8 ALLERGY STATUS TO [facility] DRUG/MEDS/BIOL SUB 07/28/2018 MICHELLE GARCÍA MD, Ot [...] GARCÍA MD, Ot T46.4X5A ADVERSE EFFECT OF [id number] 07/30/2018 MICHELLE GARCÍA MD, Ot T73.8XXA OTHER EFFECTS OF DEPRIVATION, INITIAL EN 07/30/2018 MICHELLE GARCÍA MD, Ot Z79.4 LONG-TERM (CURRENT) USE OF INSULIN 07/30/2018 MICHELLE GARCÍA MD, Ot Z79.82 LONG-TERM (CURRENT) USE OF ASPIRIN 07/30/2018 RAQUEL HERRERA, MICHELLE Fox Ot Z88.8 ALLERGY STATUS TO [facility] DRUG/MEDS/BIOL SUB 07/30/2018 RAQUEL HERRERA, MICHELLE Fox [...] plasma calcium measurement (mass/volume) 9.4 mg/dL 8.5-10.1 Capillary blood glucose measurement by glucometer (mass/volume) - 10/03/18 13: 04 Capillary blood glucose measurement by glucometer (mass/volume) 165 mg/dL 70-110 Complete blood count (CBC) with automated white blood cell (WBC) differential - 10/03/18 13:07 Blood leukocytes automated count (number/volume) 8.3 10*3/uL 4.3-11.0 Blood erythrocytes automated count (number/volume) 4.80 10*6/uL 4.35-5.85 Venous blood hemoglobin measurement (mass/volume) 13.2 g/dL 13.3-17.7 Blood hematocrit (volume fraction) 41 % 40-54 Automated erythrocyte mean corpuscular volume 85 [foz_us] 80-99 Automated erythrocyte mean corpuscular hemoglobin (mass per erythrocyte) 28 pg 25-34 Automated erythrocyte mean corpuscular hemoglobin concentration measurement ( mass/volume) 32 g/dL 32-36 Automated erythrocyte distribution width ratio 14.3 % 10.0-14.5 Automated blood platelet count (count/volume) 188 10*3/uL 130-400 Automated blood platelet mean volume measurement 10.6 [foz_us] 7.4-10.4 Automated blood neutrophils/100 leukocytes 78 % 42-75 Automated blood lymphocytes/100 leukocytes 11 % 12-44 Blood monocytes/100 leukocytes 10 % 0-12 Automated blood eosinophils/100 leukocytes 0 % 0-10 Automated blood basophils/100 leukocytes 0 % 0-10 Blood neutrophils automated count (number/volume) 6.5 10*3 1.8-7.8 Blood lymphocytes automated count (number/volume) 0.9 10*3 1.0-4.0 Blood monocytes automated count (number/volume) 0.9 10*3 0.0-1.0 Automated eosinophil count 0.0 10*3/uL 0.0-0.3 Automated blood basophil count (count/volume) 0.0 10*3/uL 0.0-0.1 Influenza virus A and B antigen detection - 10/03/18 13:07 CALL POSITIVES (F1 HELP) FLU RESULT CALLED TO NILESH AT 14[address] [facility] FLU RESULT POSITIVE FOR INFLUENZA A ANTIGEN, NEG FOR B ANTIGEN, BY IA [facility] Comprehensive metabolic panel - 10/03/18 13:07 Serum or plasma sodium measurement (moles/volume) 133 mmol/L 135-145 Serum or plasma potassium measurement (moles/volume) 4.4 mmol/L 3.6-5.0 Serum or plasma chloride measurement (moles/volume) 98 mmol/L 98-107 Carbon dioxide 21 mmol/L 21-32 Serum or plasma anion gap determination (moles/volume) 14 mmol/L 5-14 Serum or plasma urea nitrogen measurement (mass/volume) 24 mg/dL 7-18 Serum or plasma creatinine measurement (mass/volume) 1.83 mg/dL 0.60-1.30 Serum or plasma urea nitrogen/creatinine mass ratio 13 [facility] Serum or plasma creatinine measurement with calculation of estimated glomerular filtration rate 36 [facility] Serum or plasma glucose measurement (mass/volume) 166 mg/dL 70-105 Serum or plasma calcium measurement (mass/volume) 9.2 mg/dL 8.5-10.1 Serum or plasma total bilirubin measurement (mass/volume) 1.4 mg/dL 0.1-1.0 Serum or plasma alkaline phosphatase measurement (enzymatic activity/volume) 105 U/L 40-136 Serum or plasma aspartate aminotransferase measurement (enzymatic activity/ volume) 20 U/L 5-34 Serum or plasma alanine aminotransferase measurement (enzymatic activity/volume ) 15 U/L 0-55 Serum or plasma protein measurement (mass/volume) 8.1 g/dL 6.4-8.2 Serum or plasma albumin measurement (mass/volume) 4.4 g/dL 3.2-4.5 CALCIUM CORRECTED 8.9 mg/dL 8.5-10.1 Complete urinalysis with reflex to culture - 10/03/18 15:55 Urine color determination YELLOW NRG Urine clarity determination SLIGHTLY CLOUDY NRG Urine pH measurement by test strip 5 5-9 Specific gravity of urine by test strip 1.020 1.016- 1.022 Urine protein assay by test strip, semi-quantitative 3+ NEGATIVE Urine glucose detection by automated test strip NEGATIVE NEGATIVE Erythrocytes detection in urine sediment by light microscopy 5+ NEGATIVE Urine ketones detection by automated test strip 1+ NEGATIVE Urine nitrite detection by test strip NEGATIVE NEGATIVE Urine total bilirubin detection by test strip NEGATIVE NEGATIVE Urine urobilinogen measurement by automated test strip (mass/volume) NORMAL NORMAL Urine leukocyte esterase detection by dipstick NEGATIVE NEGATIVE Automated urine sediment erythrocyte count by microscopy (number/high power field) TNTC NRG Automated urine sediment leukocyte count by microscopy (number/high power field ) NONE NRG Bacteria detection in urine sediment by light microscopy NEGATIVE NRG Squamous epithelial cells detection in urine sediment by light microscopy NONE NRG Crystals detection in urine sediment by light microscopy NONE NRG Casts detection in urine sediment by light microscopy NONE NRG Mucus detection in urine sediment by light microscopy NEGATIVE NRG Complete urinalysis with reflex to culture NO NRG Encounters ACCT No. Visit Date/Time Discharge Status Pt. Type Provider Facility Loc./Unit Complaint [id number] 07/28/2018 14:45:00 07/28/2018 17:28:00 DIS Emergency RAQUEL HERRERA, MICHELLE Fox [facility] ER LIP SWELLING [id number] 01/28/2017 00:12:00 01/28/2017 23:59:59 CLS Preadmit JOHANNA CARTER DO [facility] DOG BITE [id number] 12/01/2016 10:25:00 01/27/2017 00:01:00 DIS Outpatient JOHANNA CARTER DO [facility] DOG BITE [id number] 02/01/2016 06:55:00 02/01/2016 23:59:59 CLS Outpatient JOHANNA CARTER DO [facility] CARD R07.9 CHEST PAIN [id number] 03/12/2015 14:11:00 03/12/2015 23:59:59 CLS Outpatient JOHANNA CARTER DO [facility] RAD ARTHRITIS 2ND DIGIT PIP JOINT [id number] 09/30/2013 12:53:00 12/27/2013 00:01:00 DIS Outpatient JOHANNA CARTER DO [facility] SDC CELLULITIS [id number] 11/14/2013 12:22:00 11/14/2013 23:59:59 CLS Outpatient JOHANNA CARTER DO [facility] RAD PNEUMONIA [id number] 10/03/2018 12:56:00 ACT Emergency RAQUEL HERRERA, MICHELLE Fox [facility] ER FALL/COUGH/DIZZINESS [id number] 12/28/2013 00:00:00 Document Registration [id number] 07/24/2011 11:14:00 Document Registration
--- OUTSIDE RECORDS SUMMARY | 2018-10-03 19:48 | XMS REPORT | Clinical Summary ---
Author Author [facility] Organization [facility] Address Unknown Phone Unavailable Care Team Providers Care Risk Control Consultant Name Role Phone Keo Ramos PCP Allergies [...] Not on file Implants Implanted Type Area Surface Hydrologist Device Expiration Model / Identifier Date Serial / Lot Implant Eye Scleral Buckle Band Non-Tissue Left: Eye [employer]ER 2019 92-09 / Silicone Style 41 92-09 - Implant [id number] / [id number] Implanted: Qty: 1 on 11/23/2015 by Keo Rowland MD Lens Bilateral: Eye Results Not on filefrom Last 3 Months
[2018-10-03 20:20] VITALS: BP 150/72
--- NOTE | 2018-10-03 20:20 | NUR ---
Mily Antoine admitted to room 425-1, with an admitting diagnosis of T7 fracture, Influenza A, and Hematuria, on 10/03/18 from [facility] ED via cart, accompanied by ED staff et . MILY ANTOINE introduced to surroundings, call light, bed controls, phone, TV, temperature control, lights, meal times, smoking policy, visitor policy, side rail policy, bathrooms and showers. Patient Rights given to patient in the handbook. MILY ANTOINE verbalizes understanding that [facility] is not responsible for the loss or damage to any personal effects or valuables that are kept in the patients possession during their hospitalization. The following Patient Care Plans were discussed with Mily Antoine: Discharge Planning, Falls, Fracture, and Back pain. MILY ANTOINE verbalizes understanding of Interdisciplinary Patient Education.
[2018-10-03] MEDS ORDERED: GLIM1TAB PO (22:51)
[2018-10-03] MEDS ORDERED: fentaNYL INJECTION 100 MCG/2 ML AMP IV PRN (23:30)
[2018-10-03] MEDS ORDERED: ONDANSETRON 4 MG/2 ML (SDV) Z0FRAN IV PRN (23:30)
[2018-10-04] VITALS (7 sets, daily range): BP systolic 154–184; BP diastolic 72–82
--- NOTE | 2018-10-04 01:00 | NUR ---
took over care of patient. agree with previous nurse assessment
[2018-10-04] MEDS: NS IV 1000 ML 1,000 ML IV SCH ×3 (04:18→21:16)
[2018-10-04] MEDS: HYDROcodone/APAP 5 MG/325 MG (LORTAB) TAB PO PRN ×3 (04:28→19:44)
[2018-10-04 07:03] LABS: BASOPHILS % (AUTO) 0 % (0-10); EOSINOPHILS % (AUTO) 0 % (0-10); HEMATOCRIT 37 % (40-54); HEMOGLOBIN 12.1 G/DL (13.3-17.7); LYMPHOCYTES # (AUTO) 0.6 X 10^3 (1.0-4.0); LYMPHOCYTES % (AUTO) 10 % (12-44); MEAN CORPUSCULAR HEMOGLOBIN 28 PG (25-34); MEAN CORPUSCULAR HGB CONC 33 G/DL (32-36); MEAN CORPUSCULAR VOLUME 85 FL (80-99); MEAN PLATELET VOLUME 10.6 FL (7.4-10.4); MONOCYTES # (AUTO) 0.7 X 10^3 (0.0-1.0); MONOCYTES % (AUTO) 12 % (0-12); NEUTROPHILS # (AUTO) 4.4 X 10^3 (1.8-7.8); NEUTROPHILS % (AUTO) 78 % (42-75); PLATELET COUNT 167 10^3/uL (130-400); RED CELL DISTRIBUTION WIDTH 14.5 % (10.0-14.5); WHITE BLOOD COUNT 5.7 10^3/uL (4.3-11.0)
[2018-10-04 07:18] LABS: CALCIUM 8.4 MG/DL (8.5-10.1); CREATININE SERUM 1.51 MG/DL (0.60-1.30); POTASSIUM 4.1 MMOL/L (3.6-5.0)
[2018-10-04] MEDS ORDERED: FLU QUADRIvalent (5+ YOA) 2018-2019 (AFLURIA) 0.5 ML IM ONE (07:30)
[2018-10-04] MEDS: OSELTAMIVIR 30 MG (TAMIFLU) CAPSULE PO SCH ×2 (08:20→21:15)
[2018-10-04] MEDS ORDERED: GLIM2TAB PO (10:01)
[2018-10-04] MEDS ORDERED: METF-399 PO (10:01)
[2018-10-04] MEDS ORDERED: MULT1TAB69 PO (10:01)
[2018-10-04] MEDS ORDERED: OMG1KC PO (10:01)
--- NOTE | 2018-10-04 10:03 | NUR ---
SPOKE WITH THE PATIENT ABOUT HIS MEDICATIONS. HE HAD HIS PRESCRIPTION BOTTLES WITH HIM AND I COMPARED THEM WITH THE EXT MED HX. 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
--- NOTE | 2018-10-04 14:28 | CONSULTATION REPORT ---
DATE OF SERVICE: 10/04/2018 TIME: 06:00. The patient is a 77-year-old male with a same level fall. He reported that he fell backwards in the bathroom and he hit his head and back. He does not report any loss of consciousness or any visual changes nor headache. He states that he had flu-like symptoms for the past two days. Upon presentation, he did have pain along the back as well as a right lower and lateral chest upon palpation as well as movement and coughing. A CT scan of the head and neck were performed, which were unremarkable; however, CT scan of the abdomen and pelvis did show a linear fracture of the anterior portion of the T7. At this time, he does have adequate pain control. His Joann coma scale is 15. PAST MEDICAL HISTORY: Diabetes, hypertension, hypercholesterolemia, degenerative joint disease, anxiety. PAST SURGICAL HISTORY: Laparoscopic hiatal hernia repair, tonsillectomy. ALLERGIES: LISINOPRIL. MEDICATIONS: Aspirin 81 mg daily, atorvastatin 20 mg daily, citalopram 20 mg daily, lisinopril 10 mg daily, metformin 1000 mg b.i.d. SOCIAL HISTORY: Negative smoke, negative alcohol. FAMILY HISTORY: Noncontributory. VITAL SIGNS: Temperature 99.8, blood pressure 180/82, pulse 85, respirations 94% on room air. REVIEW OF SYSTEMS: Well-nourished male, currently in no acute distress. He is not experiencing any shortness of breath or difficulty breathing. No chest pain, palpitations, diaphoresis. No nausea, vomiting. No hematemesis. No coffee ground emesis. No diarrhea, constipation. No red blood per rectum, no dark tarry stools. No fever, chills. No recent inadvertent weight loss. PHYSICAL EXAMINATION: CHEST: Few scattered rales bilaterally. HEART: Regular, no murmurs. EXTREMITIES: No lower extremity edema. Negative Homans sign. HEENT: No scleral icterus. No cervical lymphadenopathy. No neck pain. ABDOMEN: Soft, nontender, nondistended. However, there is discomfort on deep palpation of the mid abdomen. NEUROLOGIC: Whippany coma scale 15. No focal deficits. No visual changes. SKIN: Warm, dry. ASSESSMENT AND PLAN: A 77-year-old male with same level fall with a nondisplaced linear fracture of the T7 vertebrae. Currently, he is on bed rest and spinal surgery has been consulted. Most likely he will need medical therapy with pain control as well as the thoracic spinal splint. We will proceed with continued monitoring for pain control and proceed with DVT prophylaxis as well as coughing, deep breathing exercises as well as incentive spirometer to prevent atelectasis and pneumonia. Job ID: [id number] DocumentID: [id number] Dictated Date: 10/04/2018 14:02:55 Third Shift Lieutenant Date: 10/04/2018 14:27:27 Dictated By: WILTON GOOD MD
--- NOTE | 2018-10-04 16:51 | History & Physical-Hospitalist ---
History of Present Illness HPI/Chief Complaint The patient is a 77-year-old white male who was admitted from the emergency room after he presented having fallen in his bathroom. He reported that he was not feeling particularly well and had gotten up off the commode. He became unbalanced and fell. He was trying to avoid striking the corner on the lavatory cabinet. He is not completely clear what happened next but found himself on the floor. His came in and helped him up he remained in pain and came to the emergency room where he was found to have a thoracic vertebrae fracture. He was also found to have influenza. Source: patient, family Date Seen 10/04/18 Time Seen by a Provider: 16:46 Attending Physician Judi Singleton MD PCP Keo Ramos DO Referring Physician Date of Admission Oct 03, 2018 at 19:35 Home Medications & Allergies Home Medications Reviewed patient Home Medication Reconciliation performed by pharmacy medication reconciliations windows deployment technician and/or nursing. Patients Allergies have been reviewed. Allergies Allergies Coded Allergies lisinopril (Verified Allergy, Intermediate, 07/28/18) Angioedema Past Lqygwui-Pyntoo-Kvozsw Hx Past Med/Social Hx: Reviewed Nursing Past Med/Soc Hx Patient Social History Alcohol Use: Occasionally Uses Number of Drinks Today: 0 Recreational Drug Use: No Smoking Status: Never a Smoker Physical Abuse Screen: No Sexual Abuse: No Recent Foreign Travel: No Contact w/other who traveled: No Recent Hopitalizations: No Recent Infectious Disease Expo: No Immunizations Up To Date Date of Pneumonia Vaccine: Oct 03, 2016 Seasonal Allergies Seasonal Allergies: No Past Medical History Surgeries: Tonsillectomy Cardiac: Heart Murmur, Hypertension Sexually Transmitted Disease: No HIV/AIDS: No Gastrointestinal: Gastroesophageal Reflux Musculoskeletal: Arthritis, Chronic Back Pain, Fractures, Gout Endocrine: Diabetes, Non-Insulin dep Are Your Blood Sugars Over 250: No HEENT: Cataract Loss of Vision: Denies Hearing Impairment: Denies Psychosocial: Anxiety History of Blood Disorders: No Adverse Reaction to Blood Persaud: No Review of Systems Constitutional: see HPI EENTM: no symptoms reported Respiratory: no symptoms reported Cardiovascular: no symptoms reported Gastrointestinal: no symptoms reported Genitourinary: no symptoms reported Musculoskeletal: back pain Skin: no symptoms reported Psychiatric/Neurological: No Symptoms Reported Physical Exam Physical Exam Vital Signs Vital Signs - First Documented 10/03/18 12:55 Temp 98.2 Pulse 76 Resp 14 B/P (MAP) 151/78 (102) Pulse Ox 93 O2 Delivery Room Air Capillary Refill : Less Than 3 SecondsLess Than 3 Seconds Height, Weight, BMI Height: 5'10.00" Weight: 210lbs. 1.0oz. [id number]; 30.1 BMI Method:Stated General Appearance: Mild Distress Eyes: Bilateral Eye Normal Inspection HEENT: Normal ENT Inspection Neck: Normal Inspection Respiratory: Chest Non Tender, Lungs Clear, Normal Breath Sounds, No Accessory Muscle Use, No Respiratory Distress Cardiovascular: Regular Rate, Rhythm, No Edema, No Gallop, No JVD, No Murmur, Normal Peripheral Pulses Gastrointestinal: Normal Bowel Sounds, No Organomegaly, No Pulsatile Mass, Non Tender, Soft Extremity: Normal Capillary Refill Neurologic/Psychiatric: Alert, Oriented x3, No Motor/Sensory Deficits, Normal Mood/Affect Skin: Normal Color, Warm/Dry Lymphatic: No Adenopathy Results Results/Procedures Labs Laboratory Tests 10/03/18 13:07 10/04/18 06:32 Patient resulted labs reviewed. Assessment/Plan Admission Diagnosis 1.nondisplaced fracture T7. 2.influenza Admission Status: Observation Clinical Quality Measures DVT/VTE Risk/Contraindication: Risk Factor Score Per Nursin RFS Level Per Nursing on Admit: 4+=Very High CARLITOS CABALLERO MD Oct 04, 2018 16:51
[2018-10-05 04:00] VITALS: BP 169/84
[2018-10-05] MEDS: HYDROcodone/APAP 5 MG/325 MG (LORTAB) TAB PO PRN ×2 (04:33→10:11)
[2018-10-05] MEDS: NS IV 1000 ML 1,000 ML IV SCH (06:03)
[2018-10-05 08:00] VITALS: BP 193/87
--- NOTE | 2018-10-05 09:39 | Physical Therapy Evaluation ---
PT Evaluation-General Medical Diagnosis Admission Date Oct 03, 2018 at 19:35 Medical Diagnosis: T7 fracture/influenza A/fall/hematuris Onset Date: Oct 03, 2018 Therapy Diagnosis Therapy Diagnosis: debility Height/Weight Height (Feet): 5 Height (Inches): 10.00 Weight (Pounds): 210 Weight (Ounces): 1.0 Precautions Precautions/Isolations: Droplet Isolation, Fall Prevention, Standard Precautions Weight Bear Status Right Lower Extremity: Right Weight Bearing/Tolerated Left Lower Extremity: Left Weight Bearing/Tolerated Referral Physician: Donte Reason for Referral: Evaluation/Treatment Medical History Pertinent Medical History: DM, HTN, Renal Insufficiency Current History ED, patient ambulated into ED with spouse after a fall at home falling backward and hitting head and back Reviewed History: Yes Social History Home: Single Level Current Living Status: Spouse Prior/[facility] Prior Level of Function Therapy Code Descriptions/Definitions Functional Marion Measure: 0=Not Assessed/NA 4=Minimal Assistance 1=Total Assistance 5=Supervision or Setup 2=Maximal Assistance 6=Modified [place] 3=Moderate Assistance 7=Complete [place] Therapy Quality Codes: 6 Independent with activity with or without an assistive device 5 Patient requires set up or clean up by helper. Patient completes activity by themselves 4 Supervision or touching assist (CGA). [place] provide cues , steadying assist 3 The helper provides less than half the effort to complete the activity 2 The helper provides more than half the effort to complete the activity 1 Dependent. The helper does all the effort to complete an activity 7 Patient refused to complete or attempt activity 9 The patient did not perform the activity before the current illness or injury 88 Not attempted due to Medical conditions or safety concerns Functional Abilities and Goals: Independent: Patient completed the activities by him/herself, with or without an assistive device, with no assistance from a helper. Needed Some Help: Patient needed partial assistance from another person to complete activities. Dependent: A helper completed the activities for the patient. Unknown: Not Applicable: Bed Mobility: 7 Transfers (B,C,W/C) (FIM): 7 Gait: 7 Indoor Mobility (Ambulation): Independent Stairs: Independent Prior Devices Use: None PT Evaluation-Current Subjective Patient is very cheerful and agreeable to participate with PT. Pain Numeric Pain Scale: 3 Location: Medial Location Body Site: Back Pain Description: Acute Objective Patient Orientation: Normal For Age Problem Solving: Fair Attachments: IV ROM/Strength ROM Lower Extremities bilateral Le WFL Strength Lower Extremities 5/5 grossly bilateral LE all planes Integumentary/Posture Integumentary refer to nursing notes Bowel Incontinence: No Bladder Incontinence: No Posture erect Neuromuscular (Tone, Coordination, Reflexes) grossly intact x 3 Sensory Vision: Functional Hearing: Functional Sensation Right Lower Extremit: Impaired Sensation Left Lower Extremity: Impaired Transfers Therapy Code Descriptions/Definitions Functional [place] Measure: 0=Not Assessed/NA 4=Minimal Assistance 1=Total Assistance 5=Supervision or Setup 2=Maximal Assistance 6=Modified [place] 3=Moderate Assistance 7=Complete [place] Transfers (B, C, W/C) (FIM): 7 Scootin Rollin Supine to/from Sit: 7 Sit to/from Stand: 7 Gait Mode of Locomotion: Walk Anticipated Mode of Locomotion: Walk Gait (FIM): 7 Distance (FIM): 3=150 ft Distance: 500' Gait Level of Assist: 7 Gait Assistive Device: None Comments/Gait Description safe and functional Balance Sitting Static: Normal Sitting Dynamic: Normal Standing Static: Normal Standing Dynamic: Normal Assessment/Needs 77 y.o. male, is currently at [facility] safely and does not require skilled therapy intervention. PT issued TLSO back brace prior to treatment. Patient has been instructed to ambulate PRN in hallway with mask in place secondary to influenza A. RN notified. Rehab Potential: Good PT Plan Treatment/Plan Treatment Plan: Discontinue PT, goals met Treatment Plan: Other Treatment Duration: Oct 05, 2018 Frequency: 1 time per week Estimated Hrs Per Day: .25 hour per day Patient and/or Family Agrees t: Yes Time/GCodes Time In: 900 Time Out: 908 Total Billed Treatment Time: 8 Total Billed Treatment 1 visit EVLowC 8 min SALUD ORNELAS PT Oct 05, 2018 09:38
[2018-10-05] MEDS: OSELTAMIVIR 30 MG (TAMIFLU) CAPSULE PO SCH (10:10)
--- NOTE | 2018-10-05 10:25 | Progress Note-Hospitalist ---
Progress Note Progress Notes/Assess & Plan Date Seen 10/05/18 Time Seen by Provider: 10:21 Assessment & Plan The patient reports that he has minimum pain today and really only when making certain movements. He was able to walk 500 feet with PT and without the use of a walker. It was discussed with him how to determine when he might go back to work. 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 This keeps him on his feet for most of his shift. He will be active at home and tested out relative to his pain. He is to follow-up with Dr. Noah Ramos as an outpatient. Physical exam: Lungs are clear to auscultation. CV is regular without murmur. As noted above he was able to walk 500. feet without assistance Impression: Compression fracture T7. Influenza A Plan: See discharge sequence for meds and activities. Copy Copies To 1: JOHANNA RAMOS RODNEY K MD Oct 05, 2018 10:24
[2018-10-05] MEDS ORDERED: ACHD5005 PO (10:26)
--- NOTE | 2018-10-05 10:34 | Discharge Inst-Simple/Standard ---
Discharge Inst-Standard Patient Instructions/Follow Up Plan of Care/Instructions/FU: Initially minimize lifting to 10 pounds or less. Increase activity as tolerated. LeT Pain be your guide. See Dr. Ramos in 7-10 days. Activity as Tolerated: Yes Goal: Return to usual activities Discharge Diet: ADA Diet CARLITOS CABALLERO MD Oct 05, 2018 10:34
[2018-10-05 12:00] VITALS: BP 179/79
[2018-10-05 14:00] VITALS: BP 158/87
--- NOTE | 2018-10-05 14:00 | NUR ---
MILY SMITH demonstrates understanding of discharge instructions and accurately returns instructions upon questioning. Copy of Post-Discharge Instructions given to PT. MILY SMITH is able to manage continuing needs after discharge. Patients belongings returned to PT. Patient discharged from 425-1 on 10/05/18 at 1400. MILY SMITH left floor via W/C, accompanied by STAFF AND PER AUTO.
--- NOTE | 2018-10-05 17:24 | Progress Note (SOAP) ---
Subjective Date Seen by a Provider: Oct 05, 2018 Time Seen by a Provider: 12:00 Subjective/Events-last exam doing well. sitting upright and tolerating regular diet. pain controlled. fitted thoracic splint arrived. Objective Exam Vital Signs Date Time Temp Pulse Resp B/P (MAP) Pulse Ox O2 Delivery O2 Flow Rate FiO2 10/05/18 14:00 68 20 158/87 94 Room Air 10/05/18 12:00 98.0 72 18 179/79 (112) 93 Room Air 10/05/18 08:00 94 Room Air 10/05/18 08:00 97.3 68 20 193/87 (122) 96 Room Air 10/05/18 04:00 98.6 71 18 169/84 (112) 95 Room Air 10/04/18 23:33 98.0 68 18 154/72 (99) 94 Room Air 10/04/18 20:00 94 Room Air 10/04/18 19:02 99.3 78 20 162/77 (105) 96 Room Air I & O 10/05/18 07:00 Intake Total 3600 ml Output Total 3225 ml Balance 375 ml Capillary Refill : Less Than 3 SecondsLess Than 3 Seconds General Appearance: No Apparent Distress HEENT: PERRL/EOMI Neck: Full Range of Motion Respiratory: Lungs Clear, Normal Breath Sounds Cardiovascular: Regular Rate, Rhythm Gastrointestinal: normal bowel sounds, non tender, soft Extremity: Normal Capillary Refill Neurologic/Psychiatric: Alert, Oriented x3 Skin: Normal Color Lymphatic: No Adenopathy Results Lab Microbiology 10/03/18 Influenza Types A,B Antigen (ROSY) - Final, Complete Assessment/Plan Assessment/Plan Assess & Plan/Chief Complaint influenza with dehydration and same level fall with nondisplaced anterior T7 linear fracture. thoracic spine splint in place. wear at all time while ambulating or any pressure on vertebra. f/u with spinal surgery. Clinical Quality Measures DVT/VTE Risk/Contraindication: Risk Factor Score Per Nursin RFS Level Per Nursing on Admit: 4+=Very High WILTON GOOD MD Oct 05, 2018 17:24
== END 2018-10-05 14:00 | disposition home or self-care (01) ==
LOC: EDUNIT# 12:55 → ER 12:56 → 4TH 19:35
PROVIDERS: ADMIT Family Medicine; ATTEND Family Medicine
DX: S22.069A Unspecified fracture of T7-T8 vertebra, initial encounter for closed fracture (principal); S20.211A Contusion of right front wall of thorax, initial encounter; J10.1 Influenza due to other identified influenza virus with other respiratory manifestations; N18.9 Chronic kidney disease, unspecified; R31.9 Hematuria, unspecified; I12.9 Hypertensive chronic kidney disease with stage 1 through stage 4 chronic kidney disease, or unspecified chronic kidney disease; E78.00 Pure hypercholesterolemia, unspecified; E11.9 Type 2 diabetes mellitus without complications; Z66 Do not resuscitate; E86.0 Dehydration; F41.9 Anxiety disorder, unspecified; Z79.82 Long term (current) use of aspirin; Z79.899 Other long term (current) drug therapy; W18.30XA Fall on same level, unspecified, initial encounter; Y92.012 Bathroom of single-family (private) house as the place of occurrence of the external cause
CPT/HCPCS: 36415; 70450; 71250; 72125; 74176; 80048; 80053; 81000; 82962; 85025; 87804; 93005; 96374; 96376; G0378

== ENCOUNTER → 2018-11-17 | Outpatient (CLI) | payer MEDICARE, OTHER ==
[~2018-11-17] MED LIST changes: +ACHD5005 PO; +GLIM2TAB PO; +METF-399 PO; +MULT1TAB69 PO; +OMG1KC PO
--- NOTE | 2018-11-17 13:34 | Diagnostic Imaging Report ---
CLINICAL INDICATION: Patient is here for late effect T7 vertebra fracture. EXAM: X-ray of the thoracic spine, three views. COMPARISON: CT scan of the chest, abdomen, and pelvis dated 10/03/2018. FINDINGS: There is limited visualization of the thoracic spine due to overlapping anatomical structures limiting evaluation. The fracture lucency seen on comparison CT scan is not evident on this exam. There is similar height of the T7 vertebra which is not significantly loss. There is no interval thoracic spine fracture or dislocation. There are moderately hypertrophic spurs seen throughout the thoracic spine and some areas appearing to represent syndesmophytes. IMPRESSION: 1: The T7 vertebral body fracture seen on the comparison CT scan is not evident on this exam and cannot be appropriately evaluated. If there is continued concern to evaluate for healing of this fracture, then CT scan of the thoracic spine would better evaluate. 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 Dictated by: Dictated on workstation # [id number]
== END ==
LOC: RAD 10:22
PROVIDERS: ATTEND Internal Medicine
DX: J09.X2 Influenza due to identified novel influenza A virus with other respiratory manifestations (principal); S22.009S Unspecified fracture of unspecified thoracic vertebra, sequela; M47.814 Spondylosis without myelopathy or radiculopathy, thoracic region
CPT/HCPCS: 72072

== ENCOUNTER → 2021-10-01 | Outpatient (CLI) | payer MEDICARE, OTHER ==
[~2021-10-01] MED LIST changes: -CITA10TA7 PO; +CITA10TA9 PO; +GLIM1TAB4 PO; -GLIM2TAB; -GLIM2TAB PO; +GLIM2TAB4; +GLIM2TAB4 PO; -LISI10TA2 PO; +LISI10TA25 PO; +MULT-567 PO; -MULT1TAB69 PO
--- NOTE | 2021-10-01 19:39 | Diagnostic Imaging Report ---
PROCEDURE: US carotid duplex, bilateral. TECHNIQUE: Multiple real-time grayscale images were obtained over the carotid arteries in various projections, bilaterally. Additional spectral analysis and color Doppler duplex images were also obtained. INDICATION: Dizziness and vertigo. COMPARISON: None available. FINDINGS: Right carotid circulation: The right common carotid artery is normal in course and caliber. There is no significant plaque formation in the right carotid bifurcation. Based on grayscale images and flow velocity criteria, there are no hemodynamically significant stenoses. Left carotid circulation: The left common carotid artery is normal in course and caliber. There is no significant plaque formation in the right carotid bifurcation. Based on grayscale images and flow velocity criteria, there are no hemodynamically significant stenoses. Flow in the bilateral vertebral arteries is antegrade. IMPRESSION: 1. No stenosis of the right internal carotid artery. 2. No stenosis of the left internal carotid artery. Society of Radiologist in Ultrasound Consensus: Normal: ICA PSV is <125 cm/sec and no plaque or intimal thickening is visible sonographically ICA/CCA PSV ratio <2.0 ICA EDV <40 cm/sec Mild (<50% ICA stenosis): ICA PSV is <125 cm/sec and plaque or intimal thickening is visible sonographically ICA/CCA PSV ratio <2.0 ICA EDV <40 cm/sec Moderate (50-69% ICA stenosis) ICA PSV is 125-230 cm/sec and plaque is visible sonographically ICA/CCA PSV ratio of 2.0-4.0 ICA EDV of 40-100 cm/sec Severe (?70% ICA stenosis but less than near occlusion): ICA PSV is >230 cm/sec and visible plaque and luminal narrowing are seen at akers-scale and color Doppler ultrasound (the higher the Doppler parameters lie above the threshold of 230 cm/sec, the greater the likelihood of severe disease) ICA/CCA PSV ratio >4 ICA EDV >100 cm/sec Near occlusion of the ICA Velocity parameters may not apply, since velocities may be high, low, or undetectable Markedly narrowed lumen at color or power Doppler ultrasound Total occlusion of the ICA: No detectable patent lumen at akers-scale ultrasound and no flow with spectral, power, and color Doppler ultrasound May be compensatory increased velocity in the contralateral carotid Parameters based on the consensus panel Akers-Scale and Doppler ultrasound criteria published May 2003, Radiology, Volume 229. DOPPLER (peak systolic velocity M/S Right Left CCA .70 .88 ICA Proximal .75 .53 ICA Mid .69 .60 ICA Distal .71 .47 RATIO 1.22 .69 ECA .99 .73 VERT .42 .49 Dictated by: Dictated on workstation # [id number]
== END ==
LOC: RAD 13:43
PROVIDERS: ATTEND Internal Medicine
DX: J31.0 Chronic rhinitis (principal); E11.9 Type 2 diabetes mellitus without complications; I10 Essential (primary) hypertension; R42 Dizziness and giddiness
CPT/HCPCS: 93880

== ENCOUNTER 2022-03-04 05:36 | Outpatient (CLI) | payer MEDICARE ==
[~2022-03-04] VITALS: Ht 177.8 cm; Wt 93.2 kg
[2022-03-04] MEDS ORDERED: ATOR80TA76 PO (11:14)
[2022-03-04] MEDS ORDERED: ALLO100T PO (11:14)
== END 2022-03-04 11:17 ==
LOC: PREOP 05:36
PROVIDERS: ATTEND Specialist
DX: Z01.818 Encounter for other preprocedural examination (principal); H26.492 Other secondary cataract, left eye

== ENCOUNTER 2022-03-07 07:58 | Day surgery (SDC) | payer MEDICARE ==
[~2022-03-07] VITALS: Ht 177.8 cm; Wt 93.2 kg
[~2022-03-07 07:58] MED LIST changes: +ALLO100T PO; +ATOR80TA76 PO
[2022-03-07 08:13] VITALS: BP 160/83
[2022-03-07] MEDS: PHENYLEPHRINE 10% OPHTH (NEO-SYN) 5 ML BTL OU PRN ×2 (08:17→08:23)
[2022-03-07] MEDS: TETRACAINE 0.5% OPHTH SOLN 4 ML BTL (SINGLE DOSE ONLY) OU PRN ×2 (08:17→08:23)
[2022-03-07] MEDS: TROPICAMIDE 1% OPH SOLN (MYDRIACYL) 15 ML BTL OU PRN ×2 (08:17→08:23)
--- NOTE | 2022-03-07 08:30 | Ophthalmologist Pre-Op Note ---
Pre-Operative Progress Note H&P Reviewed The H&P was reviewed, patient examined and no changes noted. Date H&P Reviewed: Mar 07, 2022 Time H&P Reviewed: 08:30 Pre-Op Dx Secondary Cataract, Right Eye PRIYANKA SORTO MD Mar 07, 2022 08:30
--- NOTE | 2022-03-07 09:17 | Ophthalmology Operative Report ---
YAG Capsulotomy PREOPERATIVE DIAGNOSIS: Secondary Cataract Left Eye POSTOPERATIVE DIAGNOSIS: Secondary Cataract Left Eye PROCEDURE: YAG Capsulotomy, left eye SURGEON: Cuba Sorto ANESTHESIA: Topical anesthesia COMPLICATIONS: None ESTIMATED BLOOD LOSS: Minimal DESCRIPTION OF PROCEDURE: After proper informed consent was obtained, the patient's, a 81 male left eye received one drop of Tropicamide and one drop of Tetracaine. The patient was then placed at the YAG laser and using a power of [ 3.8] millijoules and [ 17] bursts were used to fashion a central capsulotomy. The patient tolerated the procedure well without complications. CUBA SORTO MD Mar 07, 2022 09:17
== END 2022-03-07 09:22 | disposition home or self-care (01) ==
LOC: SDC 07:58
PROVIDERS: ATTEND Specialist
DX: E11.36 Type 2 diabetes mellitus with diabetic cataract (principal); H26.40 Unspecified secondary cataract; Z79.84 Long term (current) use of oral hypoglycemic drugs

== ENCOUNTER 2023-04-24 09:42 | Emergency (ER) | payer MEDICARE ==
[~2023-04-24] VITALS: Ht 182 cm; Wt 95.0 kg
--- NOTE | 2023-04-24 09:59 | ED Neurological Problem ---
General Chief Complaint: Neurological Problems Stated Complaint: CONFUSION | Source: patient, family () Exam Limitations: no limitations History of Present Illness Date Seen by Provider: Apr 24, 2023 Time Seen by Provider: 09:46 Initial Comments 82-year-old male with history of diabetes, high blood pressure presents to the emergency department today for transient episode of confusion. History is obtained mostly from his who is on the phone. She states that he woke up just before 8:00 confused, diaphoretic. She states he did not know how many children he had or who she was. She called her daughter who brought him to the emergency department. His daughter states by the time she reached their home after about 10 minutes his symptoms had completely resolved. The patient himself does not remember the events and states he went to bed normally at about 9 PM last night. He has felt well recently with no fevers chills chest pain shortness of breath abdominal pain or changes in bowel or bladder habits. At present he denies any headache, vision changes, upper or lower extremity weak ness numbness or tingling. They did not check his blood sugar during his episode this morning but on arrival it is 130. Other systems reviewed and negative except for HPI Voice recognition software was used to dictate this note Allergies and Home Medications Allergies Coded Allergies: No Known Drug Allergies (Unverified , 03/04/22) Patient Home Medication List Home Medication List Reviewed: Yes Allopurinol (Allopurinol) 100 Mg Tablet, 100 MG PO DAILY, (Reported) Entered as Reported by: BERTRAM RAMOS on 03/04/22 1114 Atorvastatin Calcium (Atorvastatin Calcium) 80 Mg Tablet, 80 MG PO HS, (Reported ) Entered as Reported by: BERTRAM RAMOS on 03/04/22 1114 Glimepiride (Glimepiride) 2 Mg Tablet, 2 MG PO HS, (Reported) Entered as Reported by: KAUR CORDON on 10/04/18 1001 Lisinopril (Lisinopril) 10 Mg Tablet, 10 MG PO HS, (Reported) Entered as Reported by: JEZ WALDROP on 07/28/18 1644 Review of Systems Review of Systems Constitutional: see HPI Past [id number] Hx Patient Social History Tobacco Use?: No Use of E-Cig and/or Vaping dev: No Substance use?: No Alcohol Use?: No Seasonal Allergies Seasonal Allergies: No Past Medical History Surgeries: Yes Tonsillectomy Respiratory: No Cardiac: Yes Heart Murmur, Hypertension Neurological: No Sexually Transmitted Disease: No HIV/AIDS: No Genitourinary: No Gastrointestinal: Yes Gastroesophageal Reflux Musculoskeletal: Yes Arthritis, Chronic Back Pain, Fractures, Gout Endocrine: Yes Diabetes, Non-Insulin dep HEENT: Yes Cataract Loss of Vision: Denies Hearing Impairment: Denies Cancer: No Psychosocial: No Anxiety Integumentary: No Blood Disorders: No Adverse Reaction/Blood Tranf: No Physical Exam Vital Signs Vital Signs - First Documented 04/24/23 09:55 Temp 36.6 Pulse 74 Resp 20 B/P (MAP) 191/89 (123) Pulse Ox 98 Capillary Refill : Height, Weight, BMI Height: 5'10.00" Weight: 210lbs. 1.0oz. [id number]; 30.1 BMI Method:Stated General Appearance: WD/WN, no apparent distress HEENT: PERRL/EOMI, normal ENT inspection, pharynx normal Neck: non-tender, supple Respiratory: chest non-tender, lungs clear, normal breath sounds, no respiratory distress, no accessory muscle use Cardiovascular: regular rate, rhythm, no murmur Gastrointestinal: normal bowel sounds, non tender, soft, no organomegaly Extremities: normal range of motion, non-tender, normal inspection, normal cap illary refill Neurologic/Psychiatric: disc recordist II-XII nml as tested, no motor/sensory deficits, alert, normal mood/affect, oriented x 3 Coordination/Gait: normal finger to nose Motor/Sensory: no motor deficit, no sensory deficit, no pronator drift Skin: normal color, warm/dry Progress/Results/Core Measures Results/Orders Lab Results Laboratory Tests Test 04/24/23 09:51 04/24/23 11:10 Range/Units White Blood Count 5.7 4.3-11.0 10^3/uL Red Blood Count 4.70 4.30-5.52 10^6/uL Hemoglobin 13.5 13.3-17.7 g/dL Hematocrit 42 40-54 % Mean Corpuscular Volume 89 80-99 fL Mean Corpuscular Hemoglobin 29 25-34 pg Mean Corpuscular Hemoglobin Concent 33 32-36 g/dL Red Cell Distribution Width 12.7 10.0-14.5 % Platelet Count 194 130-400 10^3/uL Mean Platelet Volume 10.4 9.0-12.2 fL Immature Granulocyte % (Auto) 0 % Neutrophils (%) (Auto) 57 42-75 % Lymphocytes (%) (Auto) 26 12-44 % Monocytes (%) (Auto) 10 0-12 % Eosinophils (%) (Auto) 6 0-10 % Basophils (%) (Auto) 1 0-10 % Neutrophils # (Auto) 3.2 1.8-7.8 10^3/uL Lymphocytes # (Auto) 1.5 1.0-4.0 10^3/uL Monocytes # (Auto) 0.5 0.0-1.0 10^3/uL Eosinophils # (Auto) 0.4 H 0.0-0.3 10^3/uL Basophils # (Auto) 0.0 0.0-0.1 10^3/uL Immature Granulocyte # (Auto) 0.0 0.0-0.1 10^3/uL Prothrombin Time 13.6 12.2-14.7 SEC INR Comment 1.0 0.8-1.4 Activated Partial Thromboplast Time 29 24-35 SEC Sodium Level 143 135-145 MMOL/L Potassium Level 4.5 3.6-5.0 MMOL/L Chloride Level 107 98-107 MMOL/L Carbon Dioxide Level 22 21-32 MMOL/L Anion Gap 14 5-14 MMOL/L Blood Urea Nitrogen 27 H 7-18 MG/DL Creatinine 1.55 H 0.60-1.30 MG/DL Estimat Glomerular Filtration Rate 45 BUN/Creatinine Ratio 17 Glucose Level 130 H 70-105 MG/DL Glucometer 130 H 70-110 MG/DL Calcium Level 9.6 8.5-10.1 MG/DL Corrected Calcium 9.2 8.5-10.1 MG/DL Total Bilirubin 0.9 0.1-1.0 MG/DL Aspartate Amino Transf (AST/SGOT) 25 5-34 U/L Alanine Aminotransferase (ALT/SGPT) 31 0-55 U/L Alkaline Phosphatase 166 H 40-136 U/L Total Protein 7.9 6.4-8.2 GM/DL Albumin 4.5 3.2-4.5 GM/DL My Orders Orders - ROBIN SALMERON DO Cbc And Automated Diff (04/24/23:53) Protime With Inr (04/24/23:53) Partial Thromboplastin Time (04/24/23:53) Comprehensive Metabolic Panel (04/24/23:53) Ua Culture If Indicated (04/24/23:53) Chest 1 View, Ap/Pa Only (04/24/23:53) Ekg Tracing (04/24/23:53) Nothing By Mouth (04/24/23 Lunch) Accucheck Stat ONCE (04/24/23:53) Ed Iv/Invasive Line Start (04/24/23:53) Vital Signs Stroke Patient Q15M (04/24/23:53) Ct Head Wo-R/O Stroke (04/24/23:53) Monitor-Rhythm Ecg Trace Only (04/24/23:53) Dysphagia Screening Tool [id number] (04/24/23:53) Vital Signs/I&O 04/24/23 04/24/23 09:55 10:01 Temp 36.6 Pulse 74 64 Resp 20 20 B/P (MAP) 191/89 (123) 167/87 Pulse Ox 98 98 FSBG Bedside Testing Finger Stick Blood Glucose: 130 Blood Glucose Action Taken: RN NOTIFIED Comment Sinus rhythm with a rate of 59 bpm. Normal intervals. Normal axis. No ST or T wave abnormalities. No ectopy. No STEMI. Departure Communication (Admissions) Patient is alert oriented and completely back to normal at this time. He states he does not remember the events of this morning. Differential diagnosis currently includes TIA, hypoglycemic episode, transient dysrhythmia, hypo- /hypernatremia. We will go ahead and get a CT scan to rule out any bleeding. We will check chemistry and CBC to rule out electrolyte abnormalities, anemia. Bedside blood glucose is 130 at this time. We will go ahead and get an EKG to check for dysrhythmias. Work-up is pending at this time. [id number]: Patient is hemodynamically stable, alert oriented neurologically intact. He has NIH of 0. His symptoms do not sound neurologic to me, it sounds more like he likely had a brief hypoglycemic episode. Cannot fully rule out dysrhythmia however he has no stigmata for dysrhythmia or malignant rhythm problems on his EKG at this time. CT of his head is negative for any acute intracranial abnormality. I have independently reviewed these images. His chest x-ray is negative for any acute cardiopulmonary abnormality. His labs show some chronic kidney disease with a creatinine that is normal baseline. Slight elevation alk phos but otherwise completely unremarkable with no hypo or hypernatremia, potassium issues calcium issues or anything else that I think would cause his symptoms today. His blood sugar is normal. He is only on metformin for diabetes. I believe he stable for discharge home at this time. I did talk with him and his daughter about this at length and return to care if they have any recurrence of symptoms or if his symptoms change in any way concerning. They are comfortable agreeable discharge at this time we will follow-up with his primary doctor on Thursday. Impression Primary Impression: Transient alteration of awareness Disposition: HOME, SELF-CARE Condition: Stable Departure-Patient Inst. Referrals: JOHANNA CARTER DO (PCP/Family) Primary Care Physician Add. Discharge Instructions: As discussed I have not identified any emergent condition at this time. I cannot tell you 100% that you did not have a transient ischemic attack, "mini stroke," Your symptoms are not really consistent with this at this time. I think it is more likely that you had a brief episode of low blood sugar. I recommend you follow-up with your primary doctor next week as discussed for further evaluation and treatment recommendations. Return to the emergency department for any weakness of your arms or legs, slurred speech, severe headache or changes in vision or if your symptoms change in any way otherwise concerning to you. All discharge instructions reviewed with patient and/or family. Voiced understanding. ROBIN SALMERON DO Apr 24, 2023 09:59
[2023-04-24 10:01] VITALS: BP 167/87
[2023-04-24 10:01] LABS: BASOPHILS % (AUTO) 1 % (0-10); EOSINOPHILS # (AUTO) 0.4 10^3/uL (0.0-0.3); EOSINOPHILS % (AUTO) 6 % (0-10); HEMATOCRIT 42 % (40-54); HEMOGLOBIN 13.5 g/dL (13.3-17.7); LYMPHOCYTES # (AUTO) 1.5 10^3/uL (1.0-4.0); LYMPHOCYTES % (AUTO) 26 % (12-44); MEAN CORPUSCULAR HEMOGLOBIN 29 pg (25-34); MEAN CORPUSCULAR HGB CONC 33 g/dL (32-36); MEAN CORPUSCULAR VOLUME 89 fL (80-99); MEAN PLATELET VOLUME 10.4 fL (9.0-12.2); MONOCYTES # (AUTO) 0.5 10^3/uL (0.0-1.0); MONOCYTES % (AUTO) 10 % (0-12); NEUTROPHILS # (AUTO) 3.2 10^3/uL (1.8-7.8); NEUTROPHILS % (AUTO) 57 % (42-75); PLATELET COUNT 194 10^3/uL (130-400); WHITE BLOOD COUNT 5.7 10^3/uL (4.3-11.0)
[2023-04-24 10:08] LABS: ALBUMIN 4.5 GM/DL (3.2-4.5); PROTHROMBIN TIME PATIENT 13.6 SEC (12.2-14.7)
[2023-04-24 10:09] LABS: POTASSIUM 4.5 MMOL/L (3.6-5.0)
[2023-04-24 10:10] LABS: CALCIUM 9.6 MG/DL (8.5-10.1)
[2023-04-24 10:11] LABS: TOTAL PROTEIN 7.9 GM/DL (6.4-8.2)
[2023-04-24 10:13] LABS: BILIRUBIN,TOTAL 0.9 MG/DL (0.1-1.0)
[2023-04-24 10:15] LABS: CREATININE SERUM 1.55 MG/DL (0.60-1.30)
--- NOTE | 2023-04-24 10:29 | Diagnostic Imaging Report ---
EXAMINATION: Chest 1 view HISTORY: Confusion COMPARISON: None available. FINDINGS: The lungs are clear without edema or pneumonia. No pleural effusion or pneumothorax. Heart size is normal. IMPRESSION: 1. Clear lungs. Dictated by: Dictated on workstation # [id number]
--- NOTE | 2023-04-24 10:40 | Diagnostic Imaging Report ---
PROCEDURE: CT head wo r/o stroke. TECHNIQUE: Multiple contiguous axial images were obtained through the brain without the use of intravenous contrast. Auto Exposure Controls were utilized during the CT exam to meet ALARA standards for radiation dose reduction. INDICATION: Altered mental status. COMPARISON: CT head without contrast 10/03/2018. FINDINGS: No intracranial hemorrhage, mass effect, hydrocephalus or extra-axial fluid collections. No CT evidence of a territorial infarction. Osseous structures are intact. Mucosal thickening in the maxillary sinuses. The mastoids are clear. IMPRESSION: No acute intracranial CT findings. Dictated by: Dictated on workstation # [id number]
[2023-04-24 11:31] LABS: BACTERIA,URINE NEGATIVE /HPF; BILIRUBIN,URINE NEGATIVE (NEGATIVE); CLARITY,URINE CLEAR; COLOR,URINE YELLOW; GLUCOSE, URINE (UA) NEGATIVE (NEGATIVE); KETONES,URINE NEGATIVE (NEGATIVE); LEUKOCYTE ESTERASE ,URINE NEGATIVE (NEGATIVE); NITRITE,URINE NEGATIVE (NEGATIVE); PROTEIN,URINE 1+ (NEGATIVE); SQUAMOUS EPITHELIAL CELL,UR 0-2 /HPF
== END 2023-04-24 11:34 | disposition home or self-care (01) ==
LOC: EDUNIT# 09:42 → ER 09:43
DX: R40.4 Transient alteration of awareness (principal); E11.22 Type 2 diabetes mellitus with diabetic chronic kidney disease; I12.9 Hypertensive chronic kidney disease with stage 1 through stage 4 chronic kidney disease, or unspecified chronic kidney disease; N18.9 Chronic kidney disease, unspecified; Z79.84 Long term (current) use of oral hypoglycemic drugs
CPT/HCPCS: 36415; 70450; 71045; 80053; 81000; 82947; 85025; 85610; 85730; 93005; 93041